=== PATIENT | male | born 1950 | race Caucasian/White ===

== ENCOUNTER 2018-07-11 09:49 | Emergency (ER) | payer OTHER ==
[~2018-07-11] VITALS: Ht 172.7 cm; Wt 83.0 kg
--- NOTE | 2018-07-11 10:13 | NUR ---
PT SELF PRESENTS TO ED. ROOMED TO ER BED 02. C/O ABDOMINAL PAIN W/ N/V/D THAT STARTED YESTERDAY. GOWNED AND PLACED ON MONITOR. VSS. AWAITING MD VALENTINO.
--- NOTE | 2018-07-11 10:14 | NUR ---
DR ASCENCIO AT BEDSIDE FOR EVAL.
[2018-07-11] MEDS ORDERED: ONDANSETRON HCL/PF 4 MG/2 ML VIAL ONE (10:18)
--- NOTE | 2018-07-11 10:20 | NUR ---
IV LINE STARTED BLOOD DRAWN AND SENT TO LAB.
[2018-07-11 10:27] LABS: BASOPHILS % (AUTO) 0.4 % (0.0-2.0); EOSINOPHILS % (AUTO) 0.1 % (0.0-6.0); HEMATOCRIT 40 % (39-51); HEMOGLOBIN 13.6 g/dL (13.5-17.5); LYMPHOCYTES # (AUTO) 0.3 /CMM (0.8-4.8); LYMPHOCYTES % (AUTO) 4.4 % (20.0-44.0); MEAN CORPUSCULAR HGB CONC 34 g/dl (31.0-36.0); MEAN CORPUSCULAR VOLUME 91 fL (80-96); MONOCYTES # (AUTO) 0.5 /CMM (0.1-1.30); MONOCYTES % (AUTO) 6.8 % (2.0-12.0); NEUTROPHILS % (AUTO) 88.3 % (43.0-81.0); PLATELET COUNT (AUTO) 154 /CMM (150-450); RED BLOOD CELL COUNT(AUTO) 4.41 MIL/uL (4.5-6.0); WHITE BLOOD COUNT (AUTO) 7.9 K/uL (4.3-11.0)
[2018-07-11] MEDS ORDERED: IV NS 0.9% 1,000 ML BAG IV ONE (10:30)
[2018-07-11] MEDS ORDERED: ONDANSETRON HCL/PF 4 MG/2 ML VIAL IVP ONE (10:30)
[2018-07-11 10:34] LABS: CALCIUM, SERUM 8.5 mg/dL (8.5-10.1); CREATININE 1.6 mg/dL (0.6-1.3); POTASSIUM 3.9 mmol/L (3.5-5.1)
[2018-07-11 10:50] LABS: ALBUMIN 3.8 g/dL (3.4-5.0); BILIRUBIN,DIRECT 0.2 mg/dL (0.0-0.2); BILIRUBIN,TOTAL 0.9 mg/dL (0.2-1.0); TOTAL PROTEIN, SERUM 6.9 g/dL (6.4-8.2)
[2018-07-11] MEDS ORDERED: ACETAMINOPHEN ES 500 MG TABLET ONE (11:19)
[2018-07-11] MEDS ORDERED: ACETAMINOPHEN ES 500 MG TABLET PO ONE (11:30)
[2018-07-11 11:37] VITALS: BP 100/59
--- NOTE | 2018-07-11 11:39 | NUR ---
For discharge ACI given verbalized instructions. Home ambulatory stable. NO nausea/vomiting or diarrhea in ER
== END 2018-07-11 11:38 | disposition home or self-care (01) ==
LOC: ER 09:51
DX: R19.7 Diarrhea, unspecified (principal); R11.10 Vomiting, unspecified; Z90.89 Acquired absence of other organs; Z60.2 Problems related to living alone
CPT/HCPCS: 36415; 80048-TC; 80076-TC; 83690-TC; 85025-TC; A4606; J2405; J7030; Z7610

== ENCOUNTER 2021-01-18 21:44 | Emergency (ER) | payer OTHER ==
[~2021-01-18] VITALS: Ht 172.7 cm; Wt 63.5 kg
--- NOTE | 2021-01-18 21:48 | NUR ---
LESA FROM HOME TO ER BED 12. AAOX4. NOT IN RESP DISTRESS. AMBULATORY. BROUGHT IN FOR ANXIETY. PER PT. HE HAS BEEN THINKING AND WRRYING ABOUT HIS PAST WHICH IS MAKING HIM ANXIOUS. PT ALSO VERBALIZED THAT HE IS WORRIED ABOUT HIS INSURANCE. AWAITING MD FOR EVAL.
[2021-01-18] MEDS ORDERED: LORAZEPAM INJ 2 MG/ML VIAL ONE (22:25)
[2021-01-18] MEDS ORDERED: LORAZEPAM INJ 2 MG/ML VIAL IM ONE (22:30)
--- NOTE | 2021-01-18 23:33 | NUR ---
pt is celared for discharged but is drowsy and unsteady on gait d/t receiving Ativa. OK to stay once he is less drowsy
[2021-01-18 23:35] VITALS: BP 120/63
--- NOTE | 2021-01-19 01:12 | NUR ---
Patient discharged to home in stable condition. Written and verbal after care instructions given. Patient verbalizes understanding of instruction. Advice pt not to drive or operate any machinery due to pt was given narcotic medicine. pt verbalize understanding.
[2021-01-20] MEDS ORDERED: TEMA30CA PO (23:35)
[2021-01-20] MEDS ORDERED: SIMV-49 PO (23:38)
[2021-01-20] MEDS ORDERED: PARO20TA7 PO (23:38)
[2021-01-20] MEDS ORDERED: LITH300T3 PO (23:38)
[2021-01-20] MEDS ORDERED: MIRT-90 PO (23:38)
== END 2021-01-19 01:18 | disposition home or self-care (01) ==
LOC: ER 21:44
DX: F41.9 Anxiety disorder, unspecified (principal); Z90.89 Acquired absence of other organs; Z60.2 Problems related to living alone
CPT/HCPCS: 96372; 99283; J2060

== ENCOUNTER 2021-01-20 13:40 | Inpatient (IN) | payer OTHER ==
[~2021-01-20] VITALS: Ht 170.2 cm; Wt 85.7 kg
[2021-01-20 13:55] LABS: BASOPHILS % (AUTO) 0.3 % (0.0-2.0); EOSINOPHILS % (AUTO) 0.2 % (0.0-6.0); HEMATOCRIT 43 % (39-51); HEMOGLOBIN 14.7 g/dL (13.5-17.5); LYMPHOCYTES # (AUTO) 0.6 K/uL (0.8-4.8); LYMPHOCYTES % (AUTO) 6.3 % (20.0-44.0); MEAN CORPUSCULAR HGB CONC 34 g/dl (31.0-36.0); MEAN CORPUSCULAR VOLUME 92 fL (80-96); MONOCYTES # (AUTO) 0.6 K/uL (0.1-1.30); MONOCYTES % (AUTO) 6.4 % (2.0-12.0); NEUTROPHILS # (AUTO) 8.6 K/uL (1.8-8.9); NEUTROPHILS % (AUTO) 86.8 % (43.0-81.0); PLATELET COUNT (AUTO) 236 K/uL (150-450); RED BLOOD CELL COUNT(AUTO) 4.72 MIL/uL (4.5-6.0); WHITE BLOOD COUNT (AUTO) 9.9 K/uL (4.3-11.0)
[2021-01-20 14:02] LABS: CALCIUM, SERUM 9.3 mg/dL (8.5-10.1); CARBON DIOXIDE 19 mmol/L (21-32); CHLORIDE 107 mmol/L (98-107); CREATININE 1.2 mg/dL (0.6-1.3); GLUCOSE 104 mg/dL (74-106); POTASSIUM 3.4 mmol/L (3.5-5.1); SODIUM SERUM 140 mmol/L (136-145); UREA NITROGEN, BLOOD 18 mg/dL (7-18)
[2021-01-20 14:08] LABS: ACETAMINOPHEN < 3 ug/ml (10-30); ALANINE AMINOTRANSFERASE 23 U/L (12-78); ALBUMIN 4.1 g/dL (3.4-5.0); ALCOHOL, BLOOD 0 mg/dL (0-0); ALKALINE PHOSPHATASE 63 U/L (46-116); ASPARTATE AMINOTRANSFERASE 26 U/L (15-37); BILIRUBIN,DIRECT 0.1 mg/dL (0.0-0.2); BILIRUBIN,TOTAL 0.5 mg/dL (0.2-1.0)
--- NOTE | 2021-01-20 14:10 | NUR ---
LESA FROM PT'S HOME TO ER BED 14. AAOX3. NOT IN RESP DISTRESS. BROUGHT IN FOR SUICIDAL IDEATION W/O SPECIFIC PLAN. PT HAS BEEN FEELING VERY ANXIOUS AND WORRIED OUT HIS PAST. PT WAS REPORTED TO HAVE TAKEN 2 TEMAZEPAM. MD WAS AT THE BEDSIDE FOR EVAL. PT PALCED IN GOWN, BELONGINGS PLACED IN LOCKER. 1:1 SITTER AT BEDSIDE. WILL CONTINUE TO MONITOR PT
--- NOTE | 2021-01-20 14:42 | NUR ---
SEEN BY BELKYS SANTAMARIA,WANTS PSYCH EVAL
--- NOTE | 2021-01-20 14:45 | NUR ---
SS Consult: SS Consult requested for SI. The pt. is a 70-year-old male who was BIBRA from home[[address] [facility] [address]; [phone]] after he called emergency services due to feeling "very suicidal", per patient. The pt. is A&O X 3 and makes poor eye contact. Pt. appear well-groomed, thin build, shaking, w/ depressed mood & affect. Pt. has thought blocking thought process, with fair insight as he stated he is aware of situation and fair judgement as he called paramedics when he did not feel safe. The pt. states that he has been experiencing intermittent SI for the past 10 years. Pt. stated he has a Hx. of Schizophrenia and is currently prescribed Chauvin, Trazadone, Mirtazapine, and Temazepam. Pt. unable to specify if he has been compliant with medication. Per pt. he attempted to commit suicide 10 years ago and could not specify method of suicide attempt. Pt. stats he is currently experiencing SI and did not specify a plan. Pt. actively experiencing visual hallucinations (closing eyes and stating he sees a bright light). Pt. currently experiencing auditory hallucinations and could not specify what the voices say. RIMA offered pt. voluntary psychiatric Tx. and pt. refused. RIMA unable to gather additions information as pt. is actively responding to hallucination and needs constant redirection. RIMA discussed case with charge nurse Rosie and Ductfixing Plumber, Willis Ashley [phone] will be called to assess this patient. RIMA will be available as needed. Per SS director, Rosana Li she spoke with Willis who will see this pt. NEAL.
[2021-01-20] MEDS ORDERED: LORAZEPAM INJ 2 MG/ML VIAL IV ONE (15:00)
[2021-01-20] MEDS ORDERED: IV NS 0.9% 1,000 ML BAG IV ONE (15:00)
[2021-01-20] MEDS ORDERED: LORAZEPAM INJ 2 MG/ML VIAL ONE (15:12)
--- NOTE | 2021-01-20 15:51 | NUR ---
pt unable to urinate at this time. pt is receiving 2L ns bolus. ok to collect urine once pt have the urge.
--- NOTE | 2021-01-20 16:21 | NUR ---
covid negative per lab
[2021-01-20 17:23] LABS: BILIRUBIN,URINE Negative (NEGATIVE); COLOR,URINE YELLOW (YELLOW); LEUKOCYTE ESTERASE ,URINE Trace (NEGATIVE); NITRITE, URINE Negative (NEGATIVE); PH,URINE 5.5 (5.0-8.0); PROTEIN,URINE Negative (NEGATIVE); UGLUCOSE Negative (NEGATIVE); UROBILINOGEN,URINE 0.2 EU/dL (0.2)
--- NOTE | 2021-01-20 17:40 | NUR ---
Paged pinky for PET eval
[2021-01-20 17:43] LABS: BACTERIA,URINE Few /HPF (None Seen); RBC,URINE NONE SEEN /HPF (0-2); SQUAMOUS EPITHELIAL CELL,UR Few /HPF (None Seen)
--- NOTE | 2021-01-20 20:35 | NUR ---
PT PLACED ON 5150 HOLD FOR DANGER TO SELF
--- NOTE | 2021-01-20 21:55 | NUR ---
CARY 211-1
--- NOTE | 2021-01-20 22:50 | NUR ---
REPORT GIVEN TO SEAN BOONE FOR PIETRO
--- NOTE | 2021-01-20 22:56 | NUR ---
PT TO GPS VIA WHEELCHAIR.
[2021-01-20] MEDS ORDERED: MAG HYDROX/AL HYDROX/SIMETH 30 ML UDC PO PRN (23:30)
[2021-01-20] MEDS ORDERED: BLOOD SUGAR DIAGNOSTIC 1 EACH STRIP IN ONE (23:30)
[2021-01-20] MEDS ORDERED: MAGNESIUM HYDROXIDE 30 ML UDC PO PRN (23:30)
[2021-01-20] MEDS ORDERED: ACETAMINOPHEN 325 MG TABLET PO PRN (23:30)
[2021-01-20] MEDS ORDERED: TEMA30CA PO (23:35)
[2021-01-20] MEDS ORDERED: SIMV-49 PO (23:38)
[2021-01-20] MEDS ORDERED: MIRT-90 PO (23:38)
[2021-01-20] MEDS ORDERED: LITH300T3 PO (23:38)
[2021-01-20] MEDS ORDERED: PARO20TA7 PO (23:38)
[2021-01-21 01:02] VITALS: BP 146/84
--- NOTE | 2021-01-21 01:38 | NUR ---
GPS GEOLOGY FACULTY MEMBER NOTE: RECEIVED PATIENT FROM ER ORIGINALLY FROM HOME. PATIENT ARRIVED ON THIS UNIT AT 2308 VIA W/C WITH 1 ER ESCORT. PATIENT ADMITTED ON A 5150 HOLD FOR DTS, HOLD WAS PLACED ON 01/20/21 @ 2034. PER HOLD, RESCUE TEAM BROUGHT PATIENT FROM HOME AFTER PATIENT CALLED TO REPORT HE TOOK 2 TABLETS OF TEMAZEPAM IN AN ATTEMPT TO COMMIT SUICIDE D/T ANXIETY AND RACING THOUGHTS. UPON FACE TO FACE EVALUATION, PATIENT IS A/O X2-3, APPEARS DEPRESSED, ANXIOUS, DISHEVELED, LOOSE ASSOCIATIONS, DISORGANIZED, HYPERVERBAL, TALKING TO SELF, PARANOID, COOPERATIVE. PER PATIENT "[place] HAS A VERY ADVANCED TECHNOLOGY THAT CAN SEE EVERYTHING". PATIENT IS CURRENTLY LAYING IN BED AWAKE, NO S/S OF DISTRESS, NO C/O OF PAIN. RESPIRATION EVEN AND UNLABORED WITH EQUAL RISE AND FALL OF THE CHEST, ON ROOM AIR. DENIES SI AT THIS TIME. ACCU CHEK DONE, BS 110MG/DL. PATIENT UNABLE TO SIGN ADMISSION PAPERWORK D/T MENTAL CONDITION. PATIENT ADVISED OF HIS HOLD AND PATIENT RIGHT HANDBOOK GIVEN. PATIENT IS UNDER THE PSYCHIATRIC CARE OF DR DRAKE AND MEDICAL [facility]ARE OF [facility]. PATIENT BELONGINGS WERE INVENTORIED AND CHECKED FOR CONTRABAND. CONTRABAND REMOVED AND STORED IN PATIENT HALLWAY LOCKER. PATIENT ADVANCE DIRECTIVES PREFERENCES, IMMUNIZATIONS QUESTIONER NECESSARY PAPERWORK COMPLETED. PATIENT SKIN ASSESSMENT COMPLETED, SKIN INTACT. PATIENT ORIENTED TO ROOM, FLOOR, AND STAFF WITH ALL PATIENT QUESTIONS ANSWERED. PATIENT EDUCATED ON THE USE OF CALL SALAZAR. PATIENT BED SIDE RAILS UP X2 FOR SAFETY. PATIENT BED IS LOCKED AND IN LOWEST POSITION. ALL PATIENT NEEDS HAVE BEEN MET AT THIS TIME. WILL CONTINUE TO MONITOR Q15 FOR SAFETY, MOOD AND BEHAVIOR.
--- NOTE | 2021-01-21 06:41 | NUR ---
GPS RN CLOSING NOTES: PATIENT IS SLEEPING COMFORTABLY IN BED. PATIENT SLEPT 6HRS THIS SHIFT. NO S/S OF DISTRESS. RESPIRATION EVEN AND UNLABORED WITH EQUAL RISE AND FALL OF THE CHEST ON ROOM AIR. ALL PATIENT CARE NEEDS HAVE BEEN MET ANTICIPATED. WILL CONTINUE TO MONITOR FOR SAFETY, MOOD AND BEHAVIOR AND ENDORSE TO AM SHIFT.
[2021-01-21 08:00] VITALS: BP 131/77
--- NOTE | 2021-01-21 10:09 | NUR ---
UR Note: Josefa ([phone]), community case manager from [facility], provided Auth# [id number]. senior nurse manager asked for daily clinicals to be faxed to the fax number [phone].
--- NOTE | 2021-01-21 13:55 | NUR ---
Point of Contact: Pt does not have anyone for the SW to contact.
--- NOTE | 2021-01-21 13:55 | NUR ---
Initial Discharge Plan: Pt currently lives alone in an apartment located at [address] [place] [address], [place] [address]; ([phone]). Per pt, he would like to return to his home after discharge. SW will work with the pt and the MD regarding appropriate discharge planning. SW will form a safe and proper discharge.
--- NOTE | 2021-01-21 14:03 | NUR ---
UR Note: RIMA faxed a clinical to [employer] with attn to Josefa to the fax number: [phone].
--- NOTE | 2021-01-21 14:15 | NUR ---
Substance Abuse Intervention: RIMA conducted a substance abuse intervention with the pt due to his prescription overdose attempt.
[2021-01-21] MEDS: LITHIUM CARBONATE 150 MG CAPSULE PO SCH ×2 (14:24→18:12)
[2021-01-21 16:00] VITALS: BP 148/82
[2021-01-21 20:33] VITALS: BP 135/68
[2021-01-21] MEDS ORDERED: OLANZAPINE 10 MG TABLET PO SCH (22:00)
[2021-01-22 07:23] LABS: BASOPHILS % (AUTO) 0.3 % (0.0-2.0); EOSINOPHILS % (AUTO) 2.4 % (0.0-6.0); HEMATOCRIT 43 % (39-51); HEMOGLOBIN 14.5 g/dL (13.5-17.5); LYMPHOCYTES # (AUTO) 1.1 K/uL (0.8-4.8); LYMPHOCYTES % (AUTO) 14.8 % (20.0-44.0); MEAN CORPUSCULAR HGB CONC 34 g/dl (31.0-36.0); MEAN CORPUSCULAR VOLUME 94 fL (80-96); MONOCYTES # (AUTO) 0.5 K/uL (0.1-1.30); MONOCYTES % (AUTO) 7.2 % (2.0-12.0); NEUTROPHILS # (AUTO) 5.6 K/uL (1.8-8.9); NEUTROPHILS % (AUTO) 75.3 % (43.0-81.0); PLATELET COUNT (AUTO) 198 K/uL (150-450); RED BLOOD CELL COUNT(AUTO) 4.61 MIL/uL (4.5-6.0); WHITE BLOOD COUNT (AUTO) 7.5 K/uL (4.3-11.0)
[2021-01-22 07:38] LABS: CALCIUM, SERUM 9.6 mg/dL (8.5-10.1); POTASSIUM 3.8 mmol/L (3.5-5.1)
[2021-01-22 08:00] VITALS: BP 160/86
[2021-01-22] MEDS: LITHIUM CARBONATE 150 MG CAPSULE PO SCH ×2 (08:42→16:57)
[2021-01-22 16:00] VITALS: BP 130/67
[2021-01-22 20:00] VITALS: BP 114/61
[2021-01-22 20:03] VITALS: BP 114/61
[2021-01-22] MEDS ORDERED: OLANZAPINE 2.5 MG TABLET PO SCH (22:00)
[2021-01-22] MEDS: TEMAZEPAM 7.5 MG CAPSULE PO PRN (23:57)
--- NOTE | 2021-01-22 23:58 | NUR ---
RN NOTES : INSOMNIA PT. C/O UNABLE TO SLEEP , RESTORIL 7.5 MG PO PRN GIVEN PER PT. REQUEST WILL CONTINUE TO MONITOR.
[2021-01-23 08:00] VITALS: BP 159/84
[2021-01-23] MEDS: LITHIUM CARBONATE 150 MG CAPSULE PO SCH ×2 (08:04→16:46)
[2021-01-23] MEDS: LORAZEPAM 0.5 MG TABLET PO PRN ×2 (09:24→16:46)
[2021-01-23 16:00] VITALS: BP 118/69
--- NOTE | 2021-01-23 16:22 | NUR ---
GPS/RN VIKTORIA HAILE ELECTRONIC NEWS GATHERING EDITOR CALLED VIA [a]list games EXCHANGE TO SEE THE PT.NEW ORDER TO CONTINUE HOME MEDS SIMVASTATIN 40MG AND TO CALL STIVEN RECEIVED. TO SEE THE PT. CALLED [employer]CHANGE. DR SALEEM PAGED AND WE WAITING FOR CALL BACK.
[2021-01-23 20:22] VITALS: BP 130/78
[2021-01-23] MEDS: OLANZAPINE 2.5 MG TABLET PO SCH (21:24)
[2021-01-24 08:00] VITALS: BP 160/91
[2021-01-24] MEDS: SIMVASTATIN 20 MG TABLET PO SCH (08:30)
[2021-01-24] MEDS: LITHIUM CARBONATE 150 MG CAPSULE PO SCH ×2 (08:30→16:41)
[2021-01-24] MEDS ORDERED: SIMVASTATIN 40 MG TABLET PO SCH (09:00)
--- NOTE | 2021-01-24 09:00 | NUR ---
RN NOTE- PT CONFUSED W LOOSE ASSOCIATIONS, DENIES SI HI AH VH,MED COMPLIANT, PO INTAKE FAIR WITHDRAWN ISOLATIVE
--- NOTE | 2021-01-24 09:48 | NUR ---
UR Note: RIMA faxed a clinical to [employer] with attn to Josefa to the fax number: [phone].
[2021-01-24 16:00] VITALS: BP 103/66
[2021-01-24 20:00] VITALS: BP 128/66
[2021-01-24] MEDS: LORAZEPAM 0.5 MG TABLET PO PRN (20:16)
[2021-01-24] MEDS: OLANZAPINE 2.5 MG TABLET PO SCH (21:20)
[2021-01-24] MEDS: TEMAZEPAM 7.5 MG CAPSULE PO PRN (22:00)
--- NOTE | 2021-01-24 22:06 | NUR ---
GPS RN NOTES: PATIENT REQUESTED FOR SLEEP MEDICATION. RESTORIL 7.5MG 1TAB GIVEN PO PRN ORDERED AT 2200. WILL CONTINUE TO MONITOR.
--- NOTE | 2021-01-25 06:33 | NUR ---
GPS RN CLOSING NOTES: PATIENT IS CURRENTLY SLEEPING. PATIENT SLEPT 7HRS THIS SHIFT. PATIENT WAS COMPLIANT WITH MEDICATION THIS SHIFT. NO S/S OF DISTRESS. RESPIRATION EVEN AND UNLABORED WITH EQUAL RISE AND FALL OF THE CHEST ON ROOM AIR. ALL PATIENT CARE NEEDS HAVE BEEN MET ANTICIPATED. BED IN LOWEST POSITION AND LOCKED, WITH SIDE RAILS UP X2 FOR SAFETY. WILL CONTINUE TO MONITOR FOR SAFETY, MOOD AND BEHAVIOR AND ENDORSE TO AM SHIFT.
[2021-01-25 08:00] VITALS: BP 133/76
[2021-01-25] MEDS: LITHIUM CARBONATE 150 MG CAPSULE PO SCH ×2 (08:00→16:21)
[2021-01-25] MEDS: SIMVASTATIN 20 MG TABLET PO SCH (08:00)
--- NOTE | 2021-01-25 09:00 | NUR ---
RN NOTE- PT DENIES SI HI AH VH,MED COMPLIANT, PO INTAKE FAIR WITHDRAWN ISOLATIVE
[2021-01-25 11:42] LABS: BASOPHILS % (AUTO) 0.3 % (0.0-2.0); EOSINOPHILS % (AUTO) 1.9 % (0.0-6.0); HEMATOCRIT 45 % (39-51); HEMOGLOBIN 15.3 g/dL (13.5-17.5); LYMPHOCYTES # (AUTO) 0.9 K/uL (0.8-4.8); LYMPHOCYTES % (AUTO) 11.3 % (20.0-44.0); MEAN CORPUSCULAR HGB CONC 34 g/dl (31.0-36.0); MEAN CORPUSCULAR VOLUME 93 fL (80-96); MONOCYTES # (AUTO) 0.5 K/uL (0.1-1.30); MONOCYTES % (AUTO) 7.1 % (2.0-12.0); NEUTROPHILS # (AUTO) 6.1 K/uL (1.8-8.9); NEUTROPHILS % (AUTO) 79.4 % (43.0-81.0); PLATELET COUNT (AUTO) 231 K/uL (150-450); RED BLOOD CELL COUNT(AUTO) 4.86 MIL/uL (4.5-6.0); WHITE BLOOD COUNT (AUTO) 7.7 K/uL (4.3-11.0)
[2021-01-25 12:28] LABS: ALBUMIN 4.3 g/dL (3.4-5.0); BILIRUBIN,TOTAL 0.6 mg/dL (0.2-1.0); CALCIUM, SERUM 10.2 mg/dL (8.5-10.1); CREATININE 1.2 mg/dL (0.6-1.3); POTASSIUM 4.2 mmol/L (3.5-5.1); TOTAL PROTEIN, SERUM 7.4 g/dL (6.4-8.2)
[2021-01-25 15:59] VITALS: BP 103/59
--- NOTE | 2021-01-25 16:12 | NUR ---
UR Note: RIMA faxed a clinical to [employer] with attn to Josefa to the fax number: [phone].
--- NOTE | 2021-01-25 19:25 | NUR ---
nurses opening notes: Pt is in his room awake in bed when received from the morning shift, alert and awake with no distress as noted.
[2021-01-25 20:00] VITALS: BP 128/72
[2021-01-25] MEDS: OLANZAPINE 2.5 MG TABLET PO SCH (21:54)
[2021-01-25] MEDS: TEMAZEPAM 7.5 MG CAPSULE PO PRN (21:54)
[2021-01-25] MEDS: LORAZEPAM 0.5 MG TABLET PO PRN (21:58)
--- NOTE | 2021-01-26 06:01 | NUR ---
GPS CLOSING NOTES: PATIENT IS SLEEPING COMFORTABLY IN BED. NO S/S OF DISTRESS. RESPIRATION EVEN AND UNLABORED WITH EQUAL RISE AND FALL OF THE CHEST ON ROOM AIR. ALL PATIENT CARE NEEDS HAVE BEEN MET ANTICIPATED. WILL CONTINUE TO MONITOR FOR SAFETY, MOOD AND BEHAVIOR AND ENDORSE TO AM SHIFT.
[2021-01-26 08:00] VITALS: BP 115/73
[2021-01-26] MEDS: LITHIUM CARBONATE 150 MG CAPSULE PO SCH ×2 (08:43→16:26)
[2021-01-26] MEDS: SIMVASTATIN 20 MG TABLET PO SCH (08:43)
--- NOTE | 2021-01-26 09:00 | NUR ---
RN NOTE- CONTINUES W FLAT AFFECT SLOW VERBAL INTERACTION FOCUS ON DC CONFUSED PT DENIES SI HI AH VH,MED COMPLIANT, PO INTAKE FAIR WITHDRAWN ISOLATIVE
--- NOTE | 2021-01-26 14:31 | NUR ---
Probable Cause Hearing: Pts [id number] hold was upheld for danger to self.
[2021-01-26 16:00] VITALS: BP 130/77
--- NOTE | 2021-01-26 19:30 | NUR ---
GPS RN NOTES RECEIVED LYING COMFORTABLY ON BED IN HIS ROOM,ALERT,ORIENTED X2-3,ABLE TO VERBALIZED NEEDS,FOLLOW COMMANDS WITHOUT HESITATION.AMBULATE WITH STEADY GAIT,MED COMPLIANT PER REPORT.WILL CONTINUE TO MONITOR BEHAVIOR AND MANAGE ACCORDINGLY.
[2021-01-26 20:00] VITALS: BP 153/88
[2021-01-26] MEDS: OLANZAPINE 2.5 MG TABLET PO SCH (21:29)
[2021-01-26] MEDS: TEMAZEPAM 7.5 MG CAPSULE PO PRN (21:32)
--- NOTE | 2021-01-26 21:32 | NUR ---
GPS RN NOTES C/O INSOMNIA,RESTORIL 7.5MG PO GIVEN ORDERED AND PER PATIENT REQUEST
--- NOTE | 2021-01-27 00:07 | NUR ---
Point of contact: RIMA spoke with Josefa at [facility] to discuss pts appt with bulk mail technician. Josefa reports that pt must make appt with bulk mail technician Dr. Greg Castaneda at [address] [place] [address].
[2021-01-27 08:00] VITALS: BP 143/81
[2021-01-27] MEDS: SIMVASTATIN 20 MG TABLET PO SCH (08:26)
[2021-01-27] MEDS: LITHIUM CARBONATE 150 MG CAPSULE PO SCH (08:26)
--- NOTE | 2021-01-27 13:10 | NUR ---
Point of contact: RIMA spoke with Josefa at [facility] ([phone]) to discuss appt with psychiatrist. Josefa reports that [facility] will follow up with pt regarding psychiatrist appt.
--- NOTE | 2021-01-27 13:14 | NUR ---
Individual Intervention: Upon discharge, SW informed pt of substance use referrals to [facility] at [address] ([phone]), [facility] at [address] [place] [address] ([phone]) and [facility] at [address] [place], [place] ([phone]).
--- NOTE | 2021-01-27 13:39 | NUR ---
Discharge: Pt will be discharged back home located at [address] [place] [address]; ([phone]). Pt will be transported via taxi at 1pm. Pt does not have anyone to contact about this discharge. Pt was given referrals for substance abuse such as [facility] on [address] [place], [place] [phone] , [facility] on [address] [place] [phone] and [facility] on [address] [place], [place] [phone] . Upon discharge, the pt denied suicidal and homicidal ideation as well as visual and auditory hallucinations. Pts mood and affect were calm and euthymic upon discharge. The pt was referred to be under the care of experimental rocketsled mechanic Dr. Greg Castaneda at [address] [place] [address] and pt must make the appt. Per Josefa at [facility] ([phone]) [facility] will follow up with pt regarding psychiatrist appt.
--- NOTE | 2021-01-27 13:49 | NUR ---
UR Note: RIMA faxed discharge summary to [facility] with attn to Josefa to the fax number: [phone].
--- NOTE | 2021-01-27 13:54 | NUR ---
RN-DISCHARGE NOTES RECEIVED DISCHARGE ORDER FROM ( PSYCHIATRIST) NOEMÍ GROSS ([facility]) MADE AWARE WITH ORDERS. PATIENT DISCHARGE TO HOME TODAY.PATIENT DID NOT VERBALIZE SI/HI,DENIES VISUAL/AUDITORY HALLUCINATIONS AT THE TIME OF DISCHARGE.ALL DISCHARGE MEDICATIONS WAS REVIEWED WITH THE PATIENT WITH UNDERSTANDING. RX WAS FAXED TO [facility] AT [phone] AND RECEIVED AND VERIFIED WITH IVAN ( PHARMACIES). NOTE SPECIALIST INSTRUCTED TO FOLLOW UP WITH PCP IN A WEEK OR NEEDED AND CALL 911 OR GO TO THE NEAREST EMERGENCY ROOM INCASE OF EMERGENCY. PATIENT LEFT THE UNIT IN STABLE CONDITION A/O X3 AMBULATORY WITH STEADY GAIT. ALL BELONGINGS WAS RETURN BACK TO THE PATIENT INCLUDING BLACK WALLET, CAR SESAY AND SOME KEYS, AND OTHER BELONGINGS. PATIENT LEFT THE HOSPITAL VIA TAXI. MASK WAS GIVEN TO THE PATIENT. NO FAMILY TO NOTIFY ON THE DISCHARGE.
== END 2021-01-27 11:45 | disposition home or self-care (01) | DRG 885 ==
LOC: ER 13:45 → GPS 22:29
PROVIDERS: ADMIT Psychiatry & Neurology Psychosomatic Medicine
DX: F25.0 Schizoaffective disorder, bipolar type (principal); F29 Unspecified psychosis not due to a substance or known physiological condition; F41.9 Anxiety disorder, unspecified; Z20.822 Contact with and (suspected) exposure to COVID-19; Z86.73 Personal history of transient ischemic attack (TIA), and cerebral infarction without residual deficits; Z91.14 Patient's other noncompliance with medication regimen; F32.9 Major depressive disorder, single episode, unspecified; Z90.49 Acquired absence of other specified parts of digestive tract; E78.5 Hyperlipidemia, unspecified; I10 Essential (primary) hypertension; Z91.5 Personal history of self-harm; Z87.891 Personal history of nicotine dependence
CPT/HCPCS: 36415; 80048-TC; 80053-TC; 80061-TC; 80076-TC; 81001; 82962-TC; 84443-TC; 85025-TC; 87081-TC; 97116-TC; 97530-TC; C9803; G0480; J2060; J7030

== ENCOUNTER 2021-01-29 08:22 | Emergency (ER) | payer OTHER ==
[~2021-01-29] VITALS: Ht 172.7 cm; Wt 72.1 kg
[~2021-01-29 08:22] MED LIST: SIMV-49 PO
--- NOTE | 2021-01-29 08:40 | NUR ---
Patient came in c/o "Depressed-I have racing/thoughts/cant cope anymore was in psych facility 1wk ago Denies suicidal thoughts". AOX4, NO SOB NOTED, NO C/O OF PAIN, NO S/O ANY ACUTE DISTRESS NOTED. MAKE COMFORTABLE IN BED. WILL CONTINUE TO MONITOR
--- NOTE | 2021-01-29 08:56 | NUR ---
COVID SWAB DONE AND SENT TO THE LAB
[2021-01-29 09:01] LABS: BASOPHILS % (AUTO) 0.4 % (0.0-2.0); EOSINOPHILS % (AUTO) 1.4 % (0.0-6.0); HEMATOCRIT 42 % (39-51); HEMOGLOBIN 14.1 g/dL (13.5-17.5); LYMPHOCYTES # (AUTO) 0.8 K/uL (0.8-4.8); LYMPHOCYTES % (AUTO) 10.5 % (20.0-44.0); MEAN CORPUSCULAR HGB CONC 34 g/dl (31.0-36.0); MEAN CORPUSCULAR VOLUME 93 fL (80-96); MONOCYTES # (AUTO) 0.5 K/uL (0.1-1.30); MONOCYTES % (AUTO) 6.1 % (2.0-12.0); NEUTROPHILS # (AUTO) 6.1 K/uL (1.8-8.9); NEUTROPHILS % (AUTO) 81.6 % (43.0-81.0); PLATELET COUNT (AUTO) 213 K/uL (150-450); RED BLOOD CELL COUNT(AUTO) 4.53 MIL/uL (4.5-6.0); WHITE BLOOD COUNT (AUTO) 7.5 K/uL (4.3-11.0)
--- NOTE | 2021-01-29 09:01 | NUR ---
URINE COLLECTED AND SEND TO LAB
[2021-01-29] MEDS ORDERED: LITH300C2 PO (09:11)
[2021-01-29] MEDS ORDERED: TRAZ-257 PO ×2 (09:11→16:33)
[2021-01-29] MEDS ORDERED: MIRT-121 PO (09:11)
[2021-01-29] MEDS ORDERED: PARO20TA7 PO ×2 (09:11→16:33)
[2021-01-29 09:21] LABS: CALCIUM, SERUM 9.2 mg/dL (8.5-10.1); CARBON DIOXIDE 23 mmol/L (21-32); CHLORIDE 110 mmol/L (98-107); CREATININE 1.2 mg/dL (0.6-1.3); GLUCOSE 146 mg/dL (74-106); POTASSIUM 3.7 mmol/L (3.5-5.1); SODIUM SERUM 141 mmol/L (136-145); UREA NITROGEN, BLOOD 20 mg/dL (7-18)
[2021-01-29 09:28] LABS: ALANINE AMINOTRANSFERASE 31 U/L (12-78); ALBUMIN 3.8 g/dL (3.4-5.0); ALKALINE PHOSPHATASE 58 U/L (46-116); ASPARTATE AMINOTRANSFERASE 17 U/L (15-37); BILIRUBIN,DIRECT 0.1 mg/dL (0.0-0.2); BILIRUBIN,TOTAL 0.4 mg/dL (0.2-1.0); TOTAL PROTEIN, SERUM 6.7 g/dL (6.4-8.2)
[2021-01-29 09:29] LABS: ACETAMINOPHEN < 10 ug/ml (10-30); ALCOHOL, BLOOD < 3 mg/dL (0-0)
[2021-01-29 09:56] LABS: BILIRUBIN,URINE NEGATIVE (NEGATIVE); COLOR,URINE YELLOW (YELLOW); LEUKOCYTE ESTERASE ,URINE NEGATIVE (NEGATIVE); NITRITE, URINE NEGATIVE (NEGATIVE); PROTEIN,URINE NEGATIVE (NEGATIVE); UGLUCOSE NEGATIVE (NEGATIVE); UROBILINOGEN,URINE 0.2 EU/dL (0.2)
[2021-01-29 10:08] LABS: BACTERIA,URINE None seen /HPF (None Seen); RBC,URINE NONE SEEN /HPF (0-2); SQUAMOUS EPITHELIAL CELL,UR Few /HPF (None Seen); WBC,URINE 0-2 /HPF (0-3)
--- NOTE | 2021-01-29 11:14 | NUR ---
CALLED CRISIS CLINICAN AND LEFT A VOICEMAIL
--- NOTE | 2021-01-29 11:54 | NUR ---
SHANTEL WILL COME IN 45 MIN TO AN HOUR
--- NOTE | 2021-01-29 11:55 | NUR ---
RADHA CANDY WAFFLE ASSEMBLER THEO PHONE [phone] FAX [phone]
--- NOTE | 2021-01-29 11:55 | NUR ---
CRISIS CLINICAN COMING IN 45-60 MIN
--- NOTE | 2021-01-29 12:00 | NUR ---
PER THEO SENIOR SPEECH PATHOLOGIST FROM [facility] THE PATIENT IS APPROVED TO STAY IN [facility].
--- NOTE | 2021-01-29 12:03 | NUR ---
FAXED CLINICAL AND FACESHEET TO [facility]HA DUPREE
[2021-01-29] MEDS ORDERED: LITH300T3 PO (16:33)
[2021-01-29] MEDS ORDERED: TEMA15CA PO ×2 (16:33→16:39)
[2021-01-29] MEDS ORDERED: SIMV-49 PO (16:33)
[2021-01-29 16:49] VITALS: BP 118/79
== END 2021-01-29 16:50 | disposition home or self-care (01) ==
LOC: ER 08:25
DX: R45.851 Suicidal ideations (principal); F32.9 Major depressive disorder, single episode, unspecified; Z20.822 Contact with and (suspected) exposure to COVID-19; I10 Essential (primary) hypertension; F41.9 Anxiety disorder, unspecified; Z79.899 Other long term (current) drug therapy; Z76.0 Encounter for issue of repeat prescription
CPT/HCPCS: 36415; 80048; 80076; 80143; 80307; 80320; 81001; 85025; 87426; 99285; C9803; G0480

== ENCOUNTER 2021-03-03 08:47 | Emergency (ER) | payer OTHER ==
[~2021-03-03] VITALS: Ht 172.7 cm; Wt 68.0 kg
[~2021-03-03 08:47] MED LIST changes: +LITH300C2 PO; +LITH300T3 PO; +MIRT-121 PO; +PARO20TA7 PO; +TEMA15CA PO; +TRAZ-257 PO
--- NOTE | 2021-03-03 09:09 | NUR ---
ASSUME PT CARE, PT RESTING HERE BECAUSE HE IS UNABLE TO SLEEP SINCE LAST NIGHT AND IS WISHING TO SPEAK TO A PET TEAM. PT DENIES SI/HI. VERBALLY RESPONSIVE. STABLE VITALS. AWAITING MD VALENTINO.
--- NOTE | 2021-03-03 09:10 | NUR ---
DR MCGOVERN AT BEDSIDE FOR EVAL.
[2021-03-03] MEDS ORDERED: OLANZAPINE 5 MG TABLET ONE (09:25)
[2021-03-03] MEDS ORDERED: OLANZAPINE 5 MG TABLET PO ONE (09:30)
--- NOTE | 2021-03-03 09:32 | NUR ---
PRODUCTION BROACHING MACHINE OPERATOR AT BEDSIDE FOR BLOOD DRAW.
[2021-03-03 09:41] LABS: BASOPHILS % (AUTO) 0.5 % (0.0-2.0); HEMATOCRIT 40 % (39-51); HEMOGLOBIN 13.7 g/dL (13.5-17.5); MEAN CORPUSCULAR HGB CONC 34 g/dl (31.0-36.0); MEAN CORPUSCULAR VOLUME 92 fL (80-96); MONOCYTES # (AUTO) 0.5 K/uL (0.1-1.30); MONOCYTES % (AUTO) 5.7 % (2.0-12.0); NEUTROPHILS # (AUTO) 7.4 K/uL (1.8-8.9); NEUTROPHILS % (AUTO) 81.8 % (43.0-81.0); PLATELET COUNT (AUTO) 289 K/uL (150-450); RED BLOOD CELL COUNT(AUTO) 4.38 MIL/uL (4.5-6.0)
[2021-03-03 09:55] LABS: CALCIUM, SERUM 9.5 mg/dL (8.5-10.1); CARBON DIOXIDE 24 mmol/L (21-32); CHLORIDE 108 mmol/L (98-107); CREATININE 1.5 mg/dL (0.6-1.3); GLUCOSE 99 mg/dL (74-106); POTASSIUM 4.2 mmol/L (3.5-5.1); SODIUM SERUM 142 mmol/L (136-145); UREA NITROGEN, BLOOD 13 mg/dL (7-18)
--- NOTE | 2021-03-03 09:55 | NUR ---
PT PROVIDED W. MEAL TRAY.
--- NOTE | 2021-03-03 09:56 | NUR ---
UNABLE TO PROVIDE URINE SAMPLE AT THIS TIME. URINAL PROVIDED.
[2021-03-03 10:01] LABS: ALANINE AMINOTRANSFERASE 23 U/L (12-78); ALCOHOL, BLOOD < 3 mg/dL (0-0); ALKALINE PHOSPHATASE 86 U/L (46-116); ASPARTATE AMINOTRANSFERASE 15 U/L (15-37); BILIRUBIN,DIRECT 0.1 mg/dL (0.0-0.2); BILIRUBIN,TOTAL 0.5 mg/dL (0.2-1.0); TOTAL PROTEIN, SERUM 6.9 g/dL (6.4-8.2)
[2021-03-03 10:11] LABS: BILIRUBIN,URINE Negative (NEGATIVE); COLOR,URINE YELLOW (YELLOW); LEUKOCYTE ESTERASE ,URINE Negative (NEGATIVE); NITRITE, URINE Negative (NEGATIVE); PROTEIN,URINE Trace mg/dl (NEGATIVE); UGLUCOSE Negative (NEGATIVE); UROBILINOGEN,URINE 0.2 EU/dL (0.2)
[2021-03-03 10:12] LABS: BACTERIA,URINE None seen /HPF (None Seen); HYALINE CASTS, URINE Few /LPF (None Seen); RBC,URINE 0-2 /HPF (0-2); SQUAMOUS EPITHELIAL CELL,UR None Seen /HPF (None Seen); WBC,URINE 0-2 /HPF (0-3)
[2021-03-03 10:15] LABS: ACETAMINOPHEN 0 ug/ml (10-30)
--- NOTE | 2021-03-03 11:46 | NUR ---
ART CALLED HE IS ON HIS WAY.
--- NOTE | 2021-03-03 13:18 | NUR ---
ART NUCLEAR POWERPLANT SUPERVISOR AT BEDSIDE FOR PSYCH EVAL.
--- NOTE | 2021-03-03 13:41 | NUR ---
Patient discharged to home in stable condition. Written and verbal after care instructions given. Patient verbalizes understanding of instruction.
[2021-03-03 13:42] VITALS: BP 121/76
== END 2021-03-03 13:42 | disposition home or self-care (01) ==
LOC: ER 08:54
DX: F23 Brief psychotic disorder (principal); I10 Essential (primary) hypertension; Z86.59 Personal history of other mental and behavioral disorders; Z79.899 Other long term (current) drug therapy
CPT/HCPCS: 36415; 80048-TC; 80076-TC; 81001; 85025-TC; C9803; G0480

== ENCOUNTER 2021-03-07 18:02 | Emergency (ER) | payer MEDICARE, OTHER ==
[~2021-03-07] VITALS: Ht 172.7 cm; Wt 65.8 kg
[~2021-03-07 18:02] MED LIST changes: -LITH300T3 PO
--- NOTE | 2021-03-07 18:40 | NUR ---
ASSUME PT CARE, PT COMING FROM HOME, STATES BEEN FEELING DEPRESSED FOR THE PAST COUPLE OF DAYS AND IS HAVING SUICIDAL IDEATION. PT HAS NO PLAN DIRECTOR OF LOSS PREVENTION. DENIES HI. VERBALLY RESPONSIVE AND COOPERATIVE TO STAFF. STABLE VITALS. SITTER AT BEDSIDE. AWAITING MD VALENTINO.
--- NOTE | 2021-03-07 18:45 | NUR ---
DR BECK AT BEDSIDE FOR EVAL.
[2021-03-07 18:47] LABS: BILIRUBIN,URINE Negative (NEGATIVE); COLOR,URINE YELLOW (YELLOW); LEUKOCYTE ESTERASE ,URINE Trace (NEGATIVE); NITRITE, URINE Negative (NEGATIVE); PROTEIN,URINE Negative (NEGATIVE); UGLUCOSE Negative (NEGATIVE); UROBILINOGEN,URINE 0.2 EU/dL (0.2)
--- NOTE | 2021-03-07 18:57 | NUR ---
CANE PUSHER AT BEDSIDE FOR BLOOD DRAW.
[2021-03-07 19:01] LABS: BASOPHILS % (AUTO) 0.3 % (0.0-2.0); EOSINOPHILS % (AUTO) 1.9 % (0.0-6.0); HEMATOCRIT 41 % (39-51); HEMOGLOBIN 13.6 g/dL (13.5-17.5); LYMPHOCYTES # (AUTO) 1.4 K/uL (0.8-4.8); LYMPHOCYTES % (AUTO) 19.2 % (20.0-44.0); MEAN CORPUSCULAR HGB CONC 34 g/dl (31.0-36.0); MEAN CORPUSCULAR VOLUME 92 fL (80-96); MONOCYTES # (AUTO) 0.6 K/uL (0.1-1.30); NEUTROPHILS # (AUTO) 5.2 K/uL (1.8-8.9); NEUTROPHILS % (AUTO) 70.6 % (43.0-81.0); PLATELET COUNT (AUTO) 273 K/uL (150-450); WHITE BLOOD COUNT (AUTO) 7.4 K/uL (4.3-11.0)
[2021-03-07 19:09] LABS: BACTERIA,URINE Rare /HPF (None Seen); RBC,URINE 0-2 /HPF (0-2); SQUAMOUS EPITHELIAL CELL,UR 0-2 /HPF (None Seen)
[2021-03-07 19:25] LABS: CALCIUM, SERUM 8.7 mg/dL (8.5-10.1); CARBON DIOXIDE 24 mmol/L (21-32); CHLORIDE 106 mmol/L (98-107); CREATININE 1.3 mg/dL (0.6-1.3); GLUCOSE 92 mg/dL (74-106); POTASSIUM 3.9 mmol/L (3.5-5.1); SODIUM SERUM 141 mmol/L (136-145); UREA NITROGEN, BLOOD 20 mg/dL (7-18)
[2021-03-07 19:30] LABS: ALANINE AMINOTRANSFERASE 19 U/L (12-78); ALBUMIN 3.7 g/dL (3.4-5.0); ALCOHOL, BLOOD < 3 mg/dL (0-0); ALKALINE PHOSPHATASE 73 U/L (46-116); ASPARTATE AMINOTRANSFERASE 15 U/L (15-37); BILIRUBIN,DIRECT 0.2 mg/dL (0.0-0.2); BILIRUBIN,TOTAL 0.6 mg/dL (0.2-1.0); TOTAL PROTEIN, SERUM 6.6 g/dL (6.4-8.2)
[2021-03-07 19:31] LABS: ACETAMINOPHEN < 0 ug/ml (10-30)
--- NOTE | 2021-03-07 20:08 | NUR ---
URINE COLLECTED, SENT TO LAB.
--- NOTE | 2021-03-07 21:26 | NUR ---
AWAITING PSYCH EVAL.
--- NOTE | 2021-03-07 23:14 | NUR ---
PAGED CREDIT REPRESENTATIVE. NO ANSWER AND MESSAGE LEFT.
--- NOTE | 2021-03-08 00:15 | NUR ---
AMBULATED TO THE RESTROOM AND BACK. SITTER AT BEDSIDE.
--- NOTE | 2021-03-08 01:50 | NUR ---
NABIL LOPEZ RN CHAINSTITCH PANTS OUTSEAMER AT BEDSIDE TO [place].
--- NOTE | 2021-03-08 02:45 | NUR ---
PT STATED HE HAS NO WAY OF GETTING HOME.
--- NOTE | 2021-03-08 05:47 | NUR ---
RESTING IN BED COMFORTABLY.
[2021-03-08 07:18] VITALS: BP 135/75
--- NOTE | 2021-03-08 07:18 | NUR ---
PT AAOX4. AMBULATORY WITH STEADY GAIT. REQUESTED TO LEAVE ED. VSS. AMBULATED OUT OF ED. DISCHARGED.
== END 2021-03-08 07:18 | disposition home or self-care (01) ==
LOC: ER 18:12
DX: R45.851 Suicidal ideations (principal); I10 Essential (primary) hypertension; F32.9 Major depressive disorder, single episode, unspecified; F25.9 Schizoaffective disorder, unspecified; E78.5 Hyperlipidemia, unspecified; Z90.89 Acquired absence of other organs; Z60.2 Problems related to living alone; Z79.899 Other long term (current) drug therapy
CPT/HCPCS: 36415; 80048-TC; 80076-TC; 81001; 85025-TC; G0480

== ENCOUNTER 2021-03-21 21:35 | Emergency (ER) | payer OTHER ==
[~2021-03-21] VITALS: Ht 172.7 cm; Wt 65.8 kg
--- NOTE | 2021-03-21 22:00 | NUR ---
TO ER BED 13 AMBULATORY C/O DEPRESSION AND ANXIETY. "I JUST FIND COMFORT WHEN IM IN THE HOSPITAL." DENSAMS SI/HI @ THIS TIME. PT WAS DISCHARGED FROM [facility] REAL ESTATE ACCOUNT EXECUTIVE PER PT REPORT. PT AAOX4 NO ACUTE DISTRESS NOTED, RESP EVEN AND UNLABORED. PT CALM AND COOPERATIVE AT THIS TIME. PENDING ER MD VALENTINO.
--- NOTE | 2021-03-21 23:55 | NUR ---
PT PROVIDED WITH WARM BLANKETS.
--- NOTE | 2021-03-22 02:18 | NUR ---
PT ASLEEP, NO ACUTE DISTRESS NOTED, RESP EVEN AND UNLABORED. CALL LIGHT WITHIN REACH. WILL CONTINUE TO MONITOR PT.
--- NOTE | 2021-03-22 04:16 | NUR ---
PT AMBULATORY TO THE BATHROOM WITH STEADY GAIT NOTED. PT AAOX4, NO ACUTE DISTRESS NOTED, RESP EVEN AND UNLABORED. PT REMAINS PAIN FREE AT THIS TIME.
--- NOTE | 2021-03-22 13:12 | NUR ---
Patient discharged to home in stable condition. Written and verbal after care instructions given. Patient verbalizes understanding of instruction.
[2021-03-22 13:13] VITALS: BP 129/68
== END 2021-03-22 13:14 | disposition home or self-care (01) ==
LOC: ER 21:41
DX: F32.9 Major depressive disorder, single episode, unspecified (principal); Z76.5 Malingerer [conscious simulation]; I10 Essential (primary) hypertension; Z90.89 Acquired absence of other organs; Z60.2 Problems related to living alone; Z79.899 Other long term (current) drug therapy

== ENCOUNTER 2021-03-29 00:37 | Inpatient (IN) | payer MEDICARE, OTHER ==
[~2021-03-29] VITALS: Ht 172.7 cm; Wt 69.4 kg
--- NOTE | 2021-03-29 00:45 | NUR ---
PT BIBRA AND [employer] C/O VISUAL HALLUCINATIONS. PT DENIES SI/HI, BUT REFUSES TO ANSWER ANY OTHER QUESTIONS. PT ATTACHED TO MONITOR AND POX. MD AT BEDSIDE. PT GIVEN BLANKET AND CALL LIGHT
[2021-03-29] MEDS ORDERED: LIDOCAINE 2% JEL UROJET 10 ML MM ONE (01:00)
[2021-03-29 01:08] LABS: BASOPHILS % (AUTO) 0.3 % (0.0-2.0); HEMATOCRIT 40 % (39-51); HEMOGLOBIN 13.9 g/dL (13.5-17.5); LYMPHOCYTES # (AUTO) 1.1 K/uL (0.8-4.8); LYMPHOCYTES % (AUTO) 11.9 % (20.0-44.0); MEAN CORPUSCULAR HGB CONC 35 g/dl (31.0-36.0); MEAN CORPUSCULAR VOLUME 90 fL (80-96); MONOCYTES # (AUTO) 0.9 K/uL (0.1-1.30); MONOCYTES % (AUTO) 9.3 % (2.0-12.0); NEUTROPHILS # (AUTO) 7.2 K/uL (1.8-8.9); NEUTROPHILS % (AUTO) 77.5 % (43.0-81.0); PLATELET COUNT (AUTO) 253 K/uL (150-450); RED BLOOD CELL COUNT(AUTO) 4.49 MIL/uL (4.5-6.0); WHITE BLOOD COUNT (AUTO) 9.3 K/uL (4.3-11.0)
[2021-03-29 01:15] LABS: CALCIUM, SERUM 9.9 mg/dL (8.5-10.1); CARBON DIOXIDE 18 mmol/L (21-32); CHLORIDE 108 mmol/L (98-107); CREATININE 1.6 mg/dL (0.6-1.3); GLUCOSE 101 mg/dL (74-106); POTASSIUM 3.4 mmol/L (3.5-5.1); SODIUM SERUM 142 mmol/L (136-145); UREA NITROGEN, BLOOD 18 mg/dL (7-18)
--- NOTE | 2021-03-29 01:15 | NUR ---
TAKEN TO CT
[2021-03-29 01:27] LABS: ALANINE AMINOTRANSFERASE 19 U/L (12-78); ALBUMIN 4.1 g/dL (3.4-5.0); ALCOHOL, BLOOD < 3 mg/dL (0-0); ALKALINE PHOSPHATASE 68 U/L (46-116); ASPARTATE AMINOTRANSFERASE 16 U/L (15-37); BILIRUBIN,DIRECT 0.2 mg/dL (0.0-0.2); BILIRUBIN,TOTAL 0.9 mg/dL (0.2-1.0)
[2021-03-29 01:29] LABS: ACETAMINOPHEN 0 ug/ml (10-30)
--- NOTE | 2021-03-29 01:32 | NUR ---
URINE SENT TO LAB
[2021-03-29 01:37] LABS: BILIRUBIN,URINE SMALL (NEGATIVE); COLOR,URINE YELLOW (YELLOW); LEUKOCYTE ESTERASE ,URINE Trace (NEGATIVE); NITRITE, URINE Negative (NEGATIVE); PROTEIN,URINE Trace mg/dl (NEGATIVE); UGLUCOSE Negative (NEGATIVE); UROBILINOGEN,URINE 0.2 EU/dL (0.2)
[2021-03-29 02:21] LABS: RBC,URINE 51-80 /HPF (0-2)
[2021-03-29 02:22] LABS: BACTERIA,URINE Moderate /HPF (None Seen); SQUAMOUS EPITHELIAL CELL,UR Few /HPF (None Seen)
[2021-03-29 02:29] LABS: ABG BASE EXCESS -3.7 mmol/L; ABG OXYGEN SATURATION 96.5 % (92.0-98.5); ABG PCO2 27.9 mmHg (35.0-45.0); ABG PH 7.448 (7.350-7.450); ABG PO2 96.3 mmHg (75.0-100.0); MetHb 0.4 % (0.0-1.5); O2Hb 96.1 % (94.0-97.0); SITE, ABG Right Radial; VENT MODE, BG Room Air
--- NOTE | 2021-03-29 03:15 | NUR ---
PT ATTACHED TO POX AND MONITOR. EASILY AROUSABLE.
--- NOTE | 2021-03-29 04:51 | NUR ---
IS THE FAX FOR [facility] . FAXING CLINICALS, FACESHEET, AND COVID RESULT NOW.
--- NOTE | 2021-03-29 05:44 | NUR ---
CALLED SHANTEL FOR PSYCH EVAL. VOICEMAIL LEFT.
--- NOTE | 2021-03-29 05:45 | NUR ---
LUISITO FROM [facility] CALLED TO LET US KNOW PT MAY BE A PSYCH CASE. WILL CALL LATER TO CONFIRM PSYCH EVAL WAS DONE BY SHANTEL.
--- NOTE | 2021-03-29 05:52 | NUR ---
PAGED JOSE FOR PSYCH EVAL SINCE SHANTEL IS NOT THE NUT BLANKER OPERATOR GRANT MANAGER THIS MORNING. JOSE WAS INFORMED OF THE PT CONDITION AND IS ON HER WAY.
--- NOTE | 2021-03-29 07:05 | NUR ---
gave report to saleem smith for debby
--- NOTE | 2021-03-29 07:23 | NUR ---
JOSE WILL BE BACK IN 4 TO 5 HOURS TO EVALUATE.
[2021-03-29] MEDS ORDERED: LORAZEPAM INJ 2 MG/ML VIAL IM ONE ×2 (07:30→17:00)
[2021-03-29] MEDS ORDERED: OLANZAPINE 10 MG VIAL IM ONE ×4 (07:30→17:06)
--- NOTE | 2021-03-29 07:32 | NUR ---
The patient awake. Alert and able to communicate verbally. The patient is in no apparent distress. Attached to the monitor. Warm blanket provided for comfort. Will contnue to monitor the patient.
[2021-03-29] MEDS ORDERED: LORAZEPAM INJ 2 MG/ML VIAL ONE ×2 (07:53→17:07)
--- NOTE | 2021-03-29 10:19 | NUR ---
Patient is resting comfortably in bed with eyes closed. Easily aroused. VSS
--- NOTE | 2021-03-29 11:30 | NUR ---
LEIA DANIEL [phone].
--- NOTE | 2021-03-29 15:10 | NUR ---
RECEIVED A CALL FROM JOSE AND WANTED TO CHECK ON THE STATUS OF THE PATIENT. STILL HERE AND WILL COME RE-EVAL PATIENT IN 1 HOUR.
--- NOTE | 2021-03-29 15:37 | NUR ---
SS Note: SW met with pt. bedside. The pt. is A&O x 3 with poor eye contact. Pt. appears wellgroomed. Pt.'s mood is anxious with distressed affect.Pt.'s is guarded and responds to question with a few words. Pt. states that he came in to the hospital because he "wasn't feeling so good". SW encouraged pt. to elaborate. Pt. stated he does not want to live anymore. Pt. states he has had 1 previous SI attempt. Pt. denies active suicide plan .Pt. denies HI and denies hallucinations. SW offered voluntary placement and pt. is agreeable. SW provided pt. with mental health resources and pt accepted them. Plan: SW referred pt. to [facility] [[address] [place] [address] FAX:[phone]] for inpatient psychiatric treatment. RIMA also discussed with butane compressor operator, Betty who stated that she will re-evaluate the pt. and potentially place him on a hold if he meets criteria. Noted. [facility] [address], [place] [address] (Specializes in in-depth psychotherapy for emotional distress: anxiety, depression, interpersonal conflicts, life transitions, childhood abuse) [facility] [address] [place] [address] (Assist with solving problem marital difficulties, separation & divorce, aging parents, & grief, chronic & terminal illness) [facility] [address] [place] [address] (Deal with loss & grief, anxiety, marital difficulties) [facility] [address] [facility] [address] [place] [address] (Provide in-home mental services to people who are incapable of leaving their homes) [facility] [address] [place] [address] [facility] [address] [place] [address] PSYCHIATRIC OUTPATIENT SERVICES [facility] Partial Hospitalization and Intensive Outpatient Program (Managed Care and Gonzalez Only) [address] [place] [address]; [phone] [facility] Partial Hospitalization and Outpatient Program [address] [place] [address]; [phone] [facility] Partial Hospitalization and Outpatient Program [address] [place] [address]; [phone] [facility] [address] [place], [place] [phone] [facility] Partial Hospitalization and Outpatient [address] [place], [place] ; [phone] ;[phone] [facility] [address] [facility] [place] [address] Mental Health Services [facility] [address] [place] [address] Services: Outpatient therapy for children, teens, young adults, adults, older adults, and families; Psychiatric services, medication support [place] Crisis and Hotline Telephone Numbers: 24-Hour service unless stated [place] Mental Health/Crisis Line........[phone] Suicide Prevention Center (24 Hours).......[phone] Suicide Prevention Crisis Center.......[phone] (24 Hours) Alcoholics Anonymous (24 Hours)..........[phone] National Crisis Hotlines: Alcohol and Drug Helpline - Provides referrals to local facilities where adolescents and adults can seek help. Brief intervention. [facility]ACOB Helpline [facility] [place] [facility] 5-151-845-428-241-YCBV National Youth Crisis Hotline [place] [facility] Provides free information on specific disorders, referral directory to mental health providers, national directory of local mental health associations (M-F, 9-5 EST) [place] [facility] Information Line: Provide sinformation and literature on mental illness by disorder-for professionals and general public.
--- NOTE | 2021-03-29 16:31 | NUR ---
CLINICIAN JOSE AT THE BEDSIDE
--- NOTE | 2021-03-29 17:48 | NUR ---
Maico hawk in [facility] - 03/29/21 at 1751 by IMELDA BARBARA [phone]
--- NOTE | 2021-03-29 17:49 | NUR ---
BARBARA [phone]
--- NOTE | 2021-03-29 18:11 | NUR ---
JOSE LEFT ME CONTACT INFORMATION FOR THIS PATIENT FOR REGALS AFTER HOURS. WORKERS NAME IS BARBARA. CONTACT: [phone] OR [phone]
--- NOTE | 2021-03-30 02:30 | NUR ---
pt sleeping in [facility]. no signs of distress noted. will cont to monitor pt.
--- NOTE | 2021-03-30 08:22 | NUR ---
THE PATIENT SLEEPING IN BED. RESPONSIVE TO VERBAL STIMULI. RESPIRATION EVEN AND UNLABORED. WILL CONTINUE TO MONITOR THE PATIENT.
--- NOTE | 2021-03-30 11:05 | NUR ---
D/C Planning: This SW called [facility] patient case coordinatorRenay [phone] and left voicemail inquiring about placement at psychiatric facility. SW will remain available as needed.
--- NOTE | 2021-03-30 12:13 | NUR ---
RECEIVED A CALL FROM [facility]. PT HAS BEEN AUTHORIZED TO BE ADMITTED UNDER [facility].
[2021-03-30] MEDS ORDERED: TEMA15CA PO (12:14)
--- NOTE | 2021-03-30 12:18 | NUR ---
ROOM 212-2
--- NOTE | 2021-03-30 12:38 | NUR ---
REPORT GIVEN TO NURSE PENG FROM [facility]
--- NOTE | 2021-03-30 14:19 | NUR ---
The patient is transfered to assigned room in stable condition and per policy.
[2021-03-30] MEDS ORDERED: MAGNESIUM HYDROXIDE 30 ML UDC PO PRN (14:30)
[2021-03-30] MEDS ORDERED: BLOOD SUGAR DIAGNOSTIC 1 EACH STRIP IN ONE (14:30)
[2021-03-30] MEDS ORDERED: clonazePAM 0.5 MG TABLET PO PRN (14:30)
[2021-03-30] MEDS ORDERED: TEMAZEPAM 7.5 MG CAPSULE PO PRN (14:30)
[2021-03-30] MEDS ORDERED: ACETAMINOPHEN 325 MG TABLET PO PRN (14:30)
[2021-03-30] MEDS ORDERED: MAG HYDROX/AL HYDROX/SIMETH 30 ML UDC PO PRN (14:30)
--- NOTE | 2021-03-30 14:35 | NUR ---
POC BLOOD GLUCOSE 73. GAVE PT CRACKERS AND JUICE. WILL RETAKE.
[2021-03-30] MEDS: LORAZEPAM 0.5 MG TABLET PO PRN (15:46)
--- NOTE | 2021-03-30 15:47 | NUR ---
RN NOTE: ANXIETY AND AGITATION PT PACING. UNABLE TO STAND STILL. PARANOID. BELIEVES PEOPLE ARE OUT TO "CUT THINGS FROM MY BODY". MEDICATED WITH ATIVAN 0.5 MG PO PRN
[2021-03-30 15:59] VITALS: BP 129/93
[2021-03-30 16:00] VITALS: BP 129/93
--- NOTE | 2021-03-30 16:00 | NUR ---
POC BLOOD GLUCOSE 124. PT AWAKE AND ALERT. NO DISTRESS NOTED AT THIS TIME.
--- NOTE | 2021-03-30 17:39 | NUR ---
DR COTTON ENTERED ORDERS FOR PT. DR CAM CONTACTED AND INFORMED OF PATIENT'S UA RESULTS. DR CAM STATED THAT HE WILL TALK TO ER DOCTOR AND WILL CALL [facility] BACK FOR FURTHER ORDERS.
--- NOTE | 2021-03-30 17:40 | NUR ---
Pt. arrived in the unit via wheelchair by ER staff to the unit and placed on room 212 bed B. When evaluated, Pt was shaking and very nervous, he informed clinician that he is afraid that someone will cut something out of his body, he urinated on the floor by his bed. Pt informed clinician thst he was recently discharged from a psychiatric hospital and is not taking his medication because he does not think it works.Pt. admitted on 5150 for DTS and GD. Pt. is alert/ oriented x2, contraband done, skin assessment done intact pt refused pictures. Dr. Oneil made aware of the admission and put in orders. Dr Castaneda contacted and made aware of admission and pt's urinalysis results. Dr Castaneda stated that he will contact [facility] ER doctor for report and will contact [facility] GPS for further orders. vital signs at time of admission: BP129/93, HR 97, RR 20, Temp 97.5, SATS 95%. Will endorse to the incoming nurse for the completion of the admission.
[2021-03-30] MEDS: LITHIUM CARBONATE 150 MG CAPSULE PO SCH (17:46)
[2021-03-30 21:17] VITALS: BP 143/80
[2021-03-31 08:00] VITALS: BP 119/64
[2021-03-31] MEDS: BENZTROPINE MESYLATE (1 MG) 1 MG TABLET PO SCH ×2 (08:33→16:41)
[2021-03-31] MEDS: risperiDONE 1 MG TABLET PO SCH ×2 (08:34→16:41)
[2021-03-31] MEDS: LITHIUM CARBONATE 150 MG CAPSULE PO SCH ×2 (08:34→16:41)
[2021-03-31] MEDS: LORAZEPAM 0.5 MG TABLET PO PRN ×2 (09:57→20:42)
--- NOTE | 2021-03-31 09:57 | NUR ---
RN NOTE: ANXIETY PT PARANOID ANXIOUS . MEDICATED WITH ATIVAN 0.5 MG PO PRN
--- NOTE | 2021-03-31 10:30 | NUR ---
Utilization Review Note RIMA contacted [facility] to discuss pt's D/C plan with pt's complex case manager. LEIA Rivero (ph: [phone]) reported to RIMA that pt would benefit from either homehealth, board and care, or an IOP program. LEIA instructed RIMA to [place] [facility] [place]fax: [phone][place] next Sunday, 04/05.
[2021-03-31 11:44] LABS: BILIRUBIN,TOTAL 0.6 mg/dL (0.2-1.0); CALCIUM, SERUM 9.5 mg/dL (8.5-10.1); CREATININE 1.2 mg/dL (0.6-1.3); POTASSIUM 4.1 mmol/L (3.5-5.1)
--- NOTE | 2021-03-31 14:15 | NUR ---
Initial Discharge Plan Pt plans to return home with homehealth if he is able to secure his prior living arrangement or to a board and care. Pt's [facility] child support case officer, Josefa (ph: [phone]) recommended options for D/C-homehealth, board and care, or an IOP program. SW will work with the pt and MD regarding appropriate D/C planning, SW will form a safe and proper D/C plan.
--- NOTE | 2021-03-31 14:20 | NUR ---
Board and Care Referral RIMA faxed clinicals to Samanta at placement agency ( ), for board and care placement.
[2021-03-31 16:00] VITALS: BP 113/64
[2021-03-31 20:00] VITALS: BP 104/53
--- NOTE | 2021-03-31 20:43 | NUR ---
RN NOTES: ANXIETY PT. C/O FEELING ANXIOUS , RESTLESS ATIVAN 0.5 MG PO PRN GIVEN , WILL CONTINUE TO MONITOR.
[2021-03-31 22:30] VITALS: BP 118/69
[2021-04-01 08:00] VITALS: BP 129/84
[2021-04-01] MEDS: LITHIUM CARBONATE 150 MG CAPSULE PO SCH ×2 (08:45→16:25)
[2021-04-01] MEDS: risperiDONE 1 MG TABLET PO SCH ×2 (08:45→16:25)
[2021-04-01] MEDS: BENZTROPINE MESYLATE (1 MG) 1 MG TABLET PO SCH ×2 (08:45→16:25)
--- NOTE | 2021-04-01 09:41 | NUR ---
RN OPENING NOTE PT. IN THE ROOM RESTING IN BED NO DISTRESS OR AGITATION NOTED.COMPLIANT WITH MEDICATIONS NO C/O PAIN OR DISCOMFORT. SAFETY ENVIRONMENT OBSERVED AT ALL TIMES. MED COMPLIANT. WILL CONTINUE TO MONITOR Q 15 MIN FOR SAFETY AND BEHAVIOR.
--- NOTE | 2021-04-01 12:50 | NUR ---
Utilization Review Note RIMA received call from [facility]: LEIA Rivero (ph: [phone]) requesting medication list and 03/31/2021 progress note. RIMA faxed clinicals to [facility] (fax: [phone]).
[2021-04-01] MEDS: LORAZEPAM 0.5 MG TABLET PO PRN ×2 (13:36→20:45)
--- NOTE | 2021-04-01 14:23 | NUR ---
Board and Care Referral RIMA received call from Samanta at placement agency ( ), who stated that she found a [facility] that may be able to accept the pt. RIMA spoke to Kamilah [phone] direct care provider of [facility] [Yancy Santillan] who asked if pt. may be able to provide payment by check upon arrival. SW discussed [facility] placement with pt. and he stated he wants to think about it. Pt. stated he could provide a check as payment method upon arrival. Pt. also stated, "it is not making sense right now" I may want to go home. However, pt. told RIMA Zoila yesterday that he does not if he is able to return to his apartment anymore. RIMA will continue to discuss d/c plan with patient when he has stabilized further. RIMA informed Kamilah that pt. would like to think about it ans she expressed understanding. RIMA also left Josefa Jewell CM voicemail about this matter. RIMA will continue to collaborate with psychiatry for safe & proper D/C planning. RIMA faxed clinicals to to Kamilah [phone] direct care provider of [facility] [[id number] [employer] [employer] Santillan] FAX: [phone].
[2021-04-01 16:00] VITALS: BP 128/73
--- NOTE | 2021-04-01 18:10 | NUR ---
RN CLOSING NOTE PT RESTING IN BED COMFORTABLY. COOPERATIVE, PARANOID, AND GUARDED. ANXIOUS IN PERIODS. DENIES ANY SI/HI/AVH. MED COMPLIANT. SAFETY PRECAUTIONS IN PLACE. Q15 MINUTE CHECKS SIGNED. WILL GIVE REPORT TO NIGHT NURSE FOR PIETRO.
--- NOTE | 2021-04-01 20:00 | NUR ---
GPS RN NOTE, DR CAMILO CAM HAS NOT SEEN THIS PATIENT TODAY. PAGED [facility] AND INFORMED VANDANA DELVALLE DNP OF MY FINDINGS. VANDANA DELVALLE DNP SAID HE WILL THIS PATIENT WHEN HAS TIME. WILL CONTINUE TO MONITOR THIS PATIENT. WILL CALL DR CAMILO CAM IN A.M. TO SEE IF HE WANTS TO RELINQUISH THIS PATIENT TO [facility] TO ASSUME MEDICAL CARE.
[2021-04-01 20:32] VITALS: BP 101/52
--- NOTE | 2021-04-01 20:46 | NUR ---
RN NOTES: ANXIETY PT. C/O FEELING ANXIOUS , RESTLESS, PACING IN HALLWAY ATIVAN 0.5 MG PO PRN GIVEN , WILL CONTINUE TO MONITOR.
--- NOTE | 2021-04-02 06:55 | NUR ---
GPS RN NOTE, PAGED DR CAMILO CAM THIS A.M. AND INFORMED HIM THAT HE HAS NOT SEEN THIS PATIENT SINCE PATIENT THIS PATIENT BEEN ADMITTED. DR CAMILO CAM GAVE ORDER TO CALL ADMITTING TO HAVE THIS PATIENT MEDICAL SERVICE CHANGE TO [facility]. ALL ORDERS NOTED AND CARRIED OUT AND I WILL CONTINUE TO MONITOR THIS PATIENT.
[2021-04-02 08:00] VITALS: BP 95/61
[2021-04-02] MEDS: LITHIUM CARBONATE 150 MG CAPSULE PO SCH ×2 (08:49→16:24)
[2021-04-02] MEDS: risperiDONE 1 MG TABLET PO SCH ×2 (08:52→16:23)
[2021-04-02] MEDS: BENZTROPINE MESYLATE (1 MG) 1 MG TABLET PO SCH ×2 (08:52→16:24)
[2021-04-02 16:00] VITALS: BP_SYST 102; BP_SYST 109; BP_DIAS 61
[2021-04-02 20:00] VITALS: BP 106/59
[2021-04-02 20:18] VITALS: BP 106/59
[2021-04-02] MEDS: SIMVASTATIN 20 MG TABLET PO SCH (21:18)
[2021-04-02] MEDS: LORAZEPAM 0.5 MG TABLET PO PRN (23:11)
--- NOTE | 2021-04-02 23:13 | NUR ---
RN NOTES: PATIENT STARTED PACING AND LOOKS ANXIOUS, HE ASK FOR HIS PRN MEDICATION, TRIED TO DIVERT HIS ATTENTION AND SUGGEST SOME BREATHING TECHNIQUE TO MAKE HIM RELAX.PRN ATIVAN GIVEN PER PATIENT REQUEST.
--- NOTE | 2021-04-03 06:50 | NUR ---
RN NOTES: SLEEP WELL IN THE NIGHT, AFTER HIS PRN MEDICATION NO PERIODS OF ANXIOUSNESS OR PARANOIA THOUGHTS,STILL ASLEEP,ENDORSED FOR CONTINUITY OF CARE.
[2021-04-03 08:11] LABS: BASOPHILS % (AUTO) 0.2 % (0.0-2.0); EOSINOPHILS % (AUTO) 2.7 % (0.0-6.0); HEMATOCRIT 41 % (39-51); HEMOGLOBIN 14.1 g/dL (13.5-17.5); LYMPHOCYTES # (AUTO) 0.8 K/uL (0.8-4.8); LYMPHOCYTES % (AUTO) 13.1 % (20.0-44.0); MEAN CORPUSCULAR HGB CONC 34 g/dl (31.0-36.0); MEAN CORPUSCULAR VOLUME 91 fL (80-96); MONOCYTES # (AUTO) 0.3 K/uL (0.1-1.30); MONOCYTES % (AUTO) 4.6 % (2.0-12.0); NEUTROPHILS # (AUTO) 4.8 K/uL (1.8-8.9); NEUTROPHILS % (AUTO) 79.4 % (43.0-81.0); PLATELET COUNT (AUTO) 236 K/uL (150-450); RED BLOOD CELL COUNT(AUTO) 4.52 MIL/uL (4.5-6.0); WHITE BLOOD COUNT (AUTO) 6.1 K/uL (4.3-11.0)
[2021-04-03] MEDS: LITHIUM CARBONATE 150 MG CAPSULE PO SCH ×2 (08:28→16:02)
[2021-04-03] MEDS: risperiDONE 1 MG TABLET PO SCH ×2 (08:28→16:01)
[2021-04-03] MEDS: BENZTROPINE MESYLATE (1 MG) 1 MG TABLET PO SCH ×2 (08:28→16:01)
[2021-04-03 08:56] LABS: BILIRUBIN,TOTAL 0.5 mg/dL (0.2-1.0); CALCIUM, SERUM 9.7 mg/dL (8.5-10.1); CREATININE 1.2 mg/dL (0.6-1.3); POTASSIUM 4.1 mmol/L (3.5-5.1); TOTAL PROTEIN, SERUM 7.1 g/dL (6.4-8.2)
[2021-04-03 16:00] VITALS: BP 118/64
--- NOTE | 2021-04-03 20:00 | NUR ---
GPS-RN NOTES: PATIENT REFUSED WEEKLY SKIN ASSESSMENT.
[2021-04-03 20:23] VITALS: BP 125/64
[2021-04-03] MEDS: SIMVASTATIN 20 MG TABLET PO SCH (21:06)
[2021-04-04 08:00] VITALS: BP 118/73
[2021-04-04] MEDS: BENZTROPINE MESYLATE (1 MG) 1 MG TABLET PO SCH ×2 (08:33→16:49)
[2021-04-04] MEDS: risperiDONE 1 MG TABLET PO SCH ×2 (08:33→16:49)
[2021-04-04] MEDS: LITHIUM CARBONATE 150 MG CAPSULE PO SCH ×3 (08:34→16:49)
[2021-04-04 16:00] VITALS: BP 119/69
[2021-04-04 20:00] VITALS: BP 99/56
[2021-04-04] MEDS: SIMVASTATIN 20 MG TABLET PO SCH (21:28)
[2021-04-04] MEDS: LORAZEPAM 0.5 MG TABLET PO PRN (21:28)
--- NOTE | 2021-04-04 21:34 | NUR ---
GPS SEAN NOTES: ATIVAN 5MG/1TAB GIVEN PO FOR ANXIETY AT 2127. Addendum: 04/04/21 at 2136 by NAGI PICKETT RN ATIVAN 0.5MG/1TAB GIVEN PO PRN FOR ANXIETY AT 2127
[2021-04-05 08:00] VITALS: BP 121/80
[2021-04-05] MEDS: risperiDONE 1 MG TABLET PO SCH ×2 (08:10→16:12)
[2021-04-05] MEDS: BENZTROPINE MESYLATE (1 MG) 1 MG TABLET PO SCH ×2 (08:11→16:12)
[2021-04-05] MEDS: LITHIUM CARBONATE 150 MG CAPSULE PO SCH ×3 (08:11→16:12)
[2021-04-05] MEDS: LORAZEPAM 0.5 MG TABLET PO PRN ×2 (12:29→20:23)
--- NOTE | 2021-04-05 12:30 | NUR ---
RN-CO: ATIVAN GIVEN FOR MODERATE ANXIETY.
[2021-04-05 16:00] VITALS: BP_SYST 105; BP_SYST 128; BP_DIAS 55; BP_DIAS 80
--- NOTE | 2021-04-05 16:03 | NUR ---
RN-CO:RECEIVED PATIENT AWAKE AND COMPLAINT WITH MEDICATIONS. NEEDS PROMPTS IN ADL.DENIES SUICIDAL AND HOMICIDAL IDEATIONS. DENIES COMMAND HALLUCINATIONS. ABLE TO VERBALIZED HIS FEELINGS.
--- NOTE | 2021-04-05 16:42 | NUR ---
Utilization Review Note: RIMA received call from [facility]: LEIA Rivero (ph: [phone]) requesting medication list and progress notes from weekend. RIMA faxed clinicals [place] [facility] (fax: [phone]).
[2021-04-05 20:00] VITALS: BP 110/62
--- NOTE | 2021-04-05 20:24 | NUR ---
RN NOTES: ANXIETY PT.C/O FEELING ANXIOUS , ATIVAN 0.5 MG PO PRN GIVEN PER PT. REQUEST, WILL CONTINUE TO MONITOR.
[2021-04-05] MEDS: SIMVASTATIN 20 MG TABLET PO SCH (21:35)
--- NOTE | 2021-04-06 06:47 | NUR ---
RN NOTES: COVID TEST COLLECT , SEND OUT TO THE LAB.
[2021-04-06 08:00] VITALS: BP 110/66
[2021-04-06] MEDS: LITHIUM CARBONATE 150 MG CAPSULE PO SCH ×2 (08:42→12:14)
[2021-04-06] MEDS: LORAZEPAM 0.5 MG TABLET PO PRN (08:42)
[2021-04-06] MEDS: BENZTROPINE MESYLATE (1 MG) 1 MG TABLET PO SCH (08:42)
[2021-04-06] MEDS: risperiDONE 1 MG TABLET PO SCH (08:42)
--- NOTE | 2021-04-06 08:42 | NUR ---
RN NOTE: ANXIETY AND AGITATION PT EXHIBITING INCREASED ANXIETY AND AGITATION. PACING THE HALLWAY. UNABLE TO IMPLEMENT COPING SKILLS. RUMINATING RE DISCHARGE THIS AFTERNOON. MEDICATED WITH ATIVAN 0.5 MG PO PRN
--- NOTE | 2021-04-06 10:30 | NUR ---
Utilization Review note RIMA contacted Josefa (ph: [phone]) and was instructed to fax ([phone]) D/C summary to [facility] once the pt is D/C. Josefa informed RMIA that she would be working on the pt's aftercare appointments and will notify RIMA once they are scheduled.
[2021-04-06 16:00] VITALS: BP 108/56
--- NOTE | 2021-04-06 16:20 | NUR ---
HOT PIPE GAUGER NOTE: 70 YEAR OLD MALE DISCHARGED TO [facility] IN STABLE CONDITION. COMPLIANT WITH MEDICATIONS, COOPERATIVE WITH TREATMENT PLANS. PATIENT DENIES SI/HI AND INSTRUCTED TO GO TO THE CLOSEST ER IF DEVELOPING SI/HI. BEHAVIOR IMPROVED, PSYCHIATRIC TREATMENT PLANS MET, MEDICAL TREATMENT PLANS DEFERRED FOR CONTINUAL MONITORING. EDUCATED PT ABOUT AFTER CARE PLAN AND COPY PROVIDED. RETURNED PERSONAL BELONGINGS TO PATIENT. MEDICATIONS RECONCILED WITH DR. COTTON AND GWYN LOVING. PATIENT REFUSED TO SIGN DISCHARGE PAPER WORK. SKIN INTACT ON ADMIT AND DISCHARGE. PT LEFT THE UNIT AT 1620 VIA AMBULATION. TRANSFER OF RESPONSIBILTY SIGNED BY EMPLOYEE OF [facility].
--- NOTE | 2021-04-07 10:02 | NUR ---
SS D/C NOTE Pt was D/C to [place] [facility] ([address] [place] [address]; [phone]). Pt was picked up by [facility] major account representative on 04/06/21 at 1600. Pt has no family involved in his care. Pt was A&O x4 with a depressed mood and affect. Pt denied suicidal and homicidal ideation as well as auditory and visual hallucinations. Pt ambulates independently. Pt will be under the care of a psychiatrist and computer equipment installer, assigned to him upon admission. The choice of vendor form and multidisciplinary exit care form were done, printed, signed and given to the patient.
--- NOTE | 2021-04-13 09:45 | NUR ---
SS note SW faxed clinicals to Josefa at [facility] ([phone]) per request. Pending D/C summary report to fax when available.
== END 2021-04-06 16:20 | disposition home or self-care (01) | DRG 885 ==
LOC: ER 00:39 → GPS 03-30 13:30
PROVIDERS: ADMIT Psychiatry & Neurology Psychosomatic Medicine; ATTEND Internal Medicine
DX: F25.0 Schizoaffective disorder, bipolar type (principal); N17.9 Acute kidney failure, unspecified; I10 Essential (primary) hypertension; Z20.822 Contact with and (suspected) exposure to COVID-19; E78.5 Hyperlipidemia, unspecified; E87.6 Hypokalemia; Z86.73 Personal history of transient ischemic attack (TIA), and cerebral infarction without residual deficits; Z87.891 Personal history of nicotine dependence; F29 Unspecified psychosis not due to a substance or known physiological condition; Z79.899 Other long term (current) drug therapy
CPT/HCPCS: 36415; 36600; 70450-TC; 80048-TC; 80053-TC; 80061-TC; 80076-TC; 81001; 82010-TC; 82140-TC; 82803-TC; 83605-TC; 85025-TC; 87086-TC; C9803; G0480; J2060; J3490

== ENCOUNTER 2021-10-06 12:27 | Inpatient (IN) | payer OTHER ==
[~2021-10-06] VITALS: Ht 172.7 cm; Wt 74.8 kg
--- NOTE | 2021-10-06 12:42 | NUR ---
DR CRAWFORD AT BEDSIDE
--- NOTE | 2021-10-06 13:00 | NUR ---
URINE SAMPLE SENT TO LAB
[2021-10-06 13:19] LABS: BASOPHILS % (AUTO) 0.5 % (0.0-2.0); EOSINOPHILS % (AUTO) 3.5 % (0.0-6.0); HEMATOCRIT 41 % (39-51); LYMPHOCYTES % (AUTO) 13.6 % (20.0-44.0); MEAN CORPUSCULAR HGB CONC 34 g/dl (31.0-36.0); MEAN CORPUSCULAR VOLUME 90 fL (80-96); MONOCYTES # (AUTO) 0.6 K/uL (0.1-1.30); MONOCYTES % (AUTO) 8.6 % (2.0-12.0); NEUTROPHILS # (AUTO) 5.4 K/uL (1.8-8.9); NEUTROPHILS % (AUTO) 73.8 % (43.0-81.0); PLATELET COUNT (AUTO) 237 K/uL (150-450); WHITE BLOOD COUNT (AUTO) 7.3 K/uL (4.3-11.0)
[2021-10-06 13:51] LABS: BILIRUBIN,URINE NEGATIVE (NEGATIVE); COLOR,URINE YELLOW (YELLOW); LEUKOCYTE ESTERASE ,URINE NEGATIVE (NEGATIVE); NITRITE, URINE NEGATIVE (NEGATIVE); PROTEIN,URINE NEGATIVE (NEGATIVE); UGLUCOSE NEGATIVE (NEGATIVE); UROBILINOGEN,URINE 0.2 EU/dL (0.2)
--- NOTE | 2021-10-06 14:27 | NUR ---
COVID SWAB DONE AND SENT TO LAB
[2021-10-06 14:59] LABS: CALCIUM, SERUM 9.8 mg/dL (8.5-10.1); CARBON DIOXIDE 28 mmol/L (21-32); CHLORIDE 106 mmol/L (98-107); CREATININE 1.3 mg/dL (0.6-1.3); GLUCOSE 89 mg/dL (74-106); SODIUM SERUM 141 mmol/L (136-145); UREA NITROGEN, BLOOD 21 mg/dL (7-18)
[2021-10-06 15:07] LABS: ALANINE AMINOTRANSFERASE 23 U/L (12-78); ALKALINE PHOSPHATASE 77 U/L (46-116); ASPARTATE AMINOTRANSFERASE 14 U/L (15-37); BILIRUBIN,DIRECT 0.1 mg/dL (0.0-0.2); BILIRUBIN,TOTAL 0.4 mg/dL (0.2-1.0); TOTAL PROTEIN, SERUM 7.1 g/dL (6.4-8.2)
[2021-10-06 15:09] LABS: ACETAMINOPHEN < 2 ug/ml (10-30)
[2021-10-06 15:11] LABS: BACTERIA,URINE None seen /HPF (None Seen); RBC,URINE 0-2 /HPF (0-2); WBC,URINE 0-2 /HPF (0-3)
[2021-10-06 15:12] LABS: MUCUS,URINE Few /LPF (None Seen); SQUAMOUS EPITHELIAL CELL,UR 0-2 /HPF (None Seen)
[2021-10-06 15:17] LABS: ALCOHOL, BLOOD < 3 mg/dL (0-0)
--- NOTE | 2021-10-06 15:39 | NUR ---
SW faxed clinicals to [facility] [phone] for voluntary psychiatric treatment at [facility] [[address] [place] [address] FAX:[phone]] or other locations.
--- NOTE | 2021-10-06 16:35 | NUR ---
KARLA DURAN [phone]
--- NOTE | 2021-10-06 17:25 | NUR ---
FAXED CLINICALS TO [facility] [phone]
[2021-10-06] MEDS ORDERED: LORAZEPAM 1 MG TABLET ONE (17:53)
[2021-10-06] MEDS ORDERED: LORAZEPAM 1 MG TABLET PO ONE (18:00)
--- NOTE | 2021-10-06 18:05 | NUR ---
DINNER TRAY PROVIDED. TOLERATED WELL
--- NOTE | 2021-10-06 18:30 | NUR ---
RENEE RN FOOD SERVICE DRIVER AT BEDSIDE
--- NOTE | 2021-10-06 19:19 | NUR ---
REPORT GIVEN TO PATSY ESTRADA FOR PIETRO
--- NOTE | 2021-10-06 21:51 | NUR ---
RE-FAXED CLINICALS TO [facility] [phone]
--- NOTE | 2021-10-07 05:51 | NUR ---
CALLED [facility] TO FOLLOW. AT THIS TIME STILL NO BEDS AVAILABLE. ADVICED TO CALL BACK AFTER SHIFT CHANGE AT 0700.
--- NOTE | 2021-10-07 08:00 | NUR ---
PT PROVIDED WITH BREAKFAST
--- NOTE | 2021-10-07 10:20 | NUR ---
FA[facility]ED CLINICALS TO [facility] [FAX: [phone], TELE: [phone]]
--- NOTE | 2021-10-07 10:41 | NUR ---
CALLED [facility] TO FOLLOW UP. AT THIS TIME THER ARE NO BEDS AVAILABLE.
--- NOTE | 2021-10-07 11:57 | NUR ---
FAXED CLINICALS OVER TO [facility] [FAX: [phone], TELE: [phone]], NO BEDS AVAILABLE AT THIS TIME.
--- NOTE | 2021-10-07 12:07 | NUR ---
FAXED CLINICALS TO [facility] [FAX: [phone], TELE: [phone]] AWAITING FOR RESPONSE.
--- NOTE | 2021-10-07 15:30 | NUR ---
Faxed clinicals over to [facility] [fax: [phone], tele:[phone]]
--- NOTE | 2021-10-07 15:45 | NUR ---
[facility]KK[facility] GARRISON CALLED AND WAS NOTIFIED THAT THE PT IS NOT ABLE TO GO TO THEIR FACILITY DUE TO NOT BEING SUICIDAL ANYMORE
[2021-10-07] MEDS ORDERED: LORAZEPAM 1 MG TABLET ONE (15:57)
[2021-10-07] MEDS ORDERED: LORAZEPAM 1 MG TABLET PO ONE (16:30)
--- NOTE | 2021-10-08 12:30 | NUR ---
LUNCH TRAY PROVIDED. TOLERATED WELL
[2021-10-08] MEDS ORDERED: ACETAMINOPHEN ES 500 MG TABLET PO ONE (15:00)
--- NOTE | 2021-10-08 16:05 | NUR ---
[facility] [phone] SHANTEL WILL CALL US BACK.
[2021-10-08] MEDS ORDERED: ACETAMINOPHEN ES 500 MG TABLET ONE (16:18)
--- NOTE | 2021-10-08 16:26 | NUR ---
FAXED CLINICALS TO [facility].
--- NOTE | 2021-10-08 17:14 | NUR ---
RADHA CALLED BACK MARINA [phone] NEED TO CALL SCAN JANE GOMEZ [phone]
--- NOTE | 2021-10-08 17:21 | NUR ---
CALLED [facility] [phone] OPTION 1 WILL RETURN OUR CALL PER JULIA.
--- NOTE | 2021-10-08 17:34 | NUR ---
CHRISTIE CALLED FROM [facility] . THEY NO LONGER WORK WITH RADHA
--- NOTE | 2021-10-08 17:36 | NUR ---
CALLED [facility]INA DUPREE [phone] VM ASKED TO ALSO CALL [phone] FOR LEIA
--- NOTE | 2021-10-08 17:38 | NUR ---
[facility] [phone] NEEDS BEHAVIORAL HEALTH. WE NEED HELP WITH PLACEMENT. TRANSFERED TO DELBERT CHAPIN.
--- NOTE | 2021-10-08 17:44 | NUR ---
MARINA CALLED AND WILL CALL US WITH A NUMBER THAT WE CAN CALL TO GET HELP WITH PLACEMENT.
--- NOTE | 2021-10-08 18:34 | NUR ---
MARINA CALLED HERE IS NEW NUMBER [facility] [phone] AFTER HOURS PLEASE CALL [phone]
--- NOTE | 2021-10-08 18:38 | NUR ---
CALLED [facility] [phone] THEY ARE CLOSED ON THE WEEKEND.
--- NOTE | 2021-10-08 18:39 | NUR ---
CALLED [phone] THIS NUMBER SEEMS TO BE INCORRECT.
--- NOTE | 2021-10-09 13:12 | NUR ---
TREE FROM [place] [phone] TO CHECK IF PT WAS DISCHARGED
--- NOTE | 2021-10-09 13:44 | NUR ---
CALLED [phone] TO SPEAK WITH A COORDINATOR. GEMA WILL CALL US BACK.
--- NOTE | 2021-10-09 13:59 | NUR ---
[facility] SHOE WORKER CALLED. FRANK CALL BACK# [phone], FAX [phone] REQUESTING FOR FACESHEET AND UPDATED CLINICALS.
--- NOTE | 2021-10-09 14:43 | NUR ---
EVETTE CALLED AND WILL FOLLOWUP.
[2021-10-09] MEDS ORDERED: LORAZEPAM 1 MG TABLET ONE (15:12)
--- NOTE | 2021-10-09 15:22 | NUR ---
RODDY FROM [facility] [phone]
[2021-10-09] MEDS ORDERED: LORAZEPAM 1 MG TABLET PO ONE (15:30)
--- NOTE | 2021-10-09 16:45 | NUR ---
KARLA PEREYRA FROM [facility] [phone] LEFT VM
--- NOTE | 2021-10-09 16:51 | NUR ---
[id number] RODDY [phone]
[2021-10-09] MEDS ORDERED: BUPR150T10 PO (17:40)
[2021-10-09] MEDS ORDERED: ATOR10TA PO (17:40)
--- NOTE | 2021-10-09 18:10 | NUR ---
CALLED DR. CAM
--- NOTE | 2021-10-09 18:27 | NUR ---
REPORT GIVEN TO MI FOR PIETRO, ASKED TO TRANSFER PT AT CHANGE OF SHIFT DUE TO UNAVAILABLE SITTER.
--- NOTE | 2021-10-09 19:38 | NUR ---
TRANSFERRE TO 215 IN STABLE CONDITION
[2021-10-09] MEDS ORDERED: ACETAMINOPHEN 325 MG TABLET PO PRN (20:30)
[2021-10-09] MEDS ORDERED: MAG HYDROX/AL HYDROX/SIMETH 30 ML UDC PO PRN (20:30)
[2021-10-09] MEDS ORDERED: BLOOD SUGAR DIAGNOSTIC 1 EACH STRIP IN ONE (20:30)
[2021-10-09] MEDS ORDERED: MAGNESIUM HYDROXIDE 30 ML UDC PO PRN (20:30)
[2021-10-09] MEDS: LORAZEPAM 0.5 MG TABLET PO PRN (20:50)
--- NOTE | 2021-10-09 20:51 | NUR ---
RN NOTES: ANXIETY PT. C/O ANXIOUS PARANOID , PACING IN HALLWAY , ATIVAN 0.5 MG PO GIVEN WILL CONTINUE TO MONITOR.
[2021-10-09 20:59] VITALS: BP 121/65
--- NOTE | 2021-10-09 22:07 | NUR ---
ADMITING NOTES: ADMITTED THIS 71Y/O MALE PATIENT ADMIT FROM [facility] /ED , ADMITTED TO GPS ON VOLUANTRY STATUS, PER ED REPORT , PT. FEELING VERY DEPRESSED, HAVING THOUGHTS OF HARMING HIMSELF , NOT SLEEPING ,FEELING HOPELESS AND HELPLESS AND HIS MEDICATIONS IS NOT WORKING AND PT. REQUESTING VOLUNTARY ADMISSION, UPON FACE TO FACE ASSESSMENT PATIENT IS A&O X 3, DEPRESSED, RESTLESS ANXIOUS , DISHELVED ,EASILY GETS AGITATED, PARANOID , COOPERTIVE AT THIS TIME DENIES SI /HI AT THIS TIME, PT. IS POOR HISTORIAN, POOR INSIGHT ,POOR JUDGEMENT, PT. DENIES SI HI AT THIS TIME, PER PT. I M FEELING SOME BETTER ATT HIS TIME , BOTH MD AWARE AND NOTIFIED OF THE ADMISSION, BELONGINGS CONTRABAND WERE DONE , PT. SIGNED ALL DOCUMENTS ADMISSION CONSENTS , PT. RIGHTS DISCUSS BY PATIENT PARTNER , PROVIDE THE PT. WITH HANDBOOK, AND MEDICATIONS GUIDE, ENVIRONMENTAL SAFETY CHECK DONE, ENCOURAGED PT. VERBALIZED ANY FEELING CONCERN TO STAFF, ORIENT TO UNIT POLICY, NO ACUTE DISTRESS NOTED,VITAL SIGNS WNL ,DENIES ANY PAIN AT THIS TIME,WILL CONTINUE TO MONITOR FOR Q15 SAFETY AND BEHAVIOR.
[2021-10-09] MEDS: TEMAZEPAM 7.5 MG CAPSULE PO PRN (22:31)
--- NOTE | 2021-10-09 22:32 | NUR ---
RN NOTES: INSOMNIA PT. C/O UNABLE TO SLEEP ,PRN RESTORIL 7.5 MG PO GIVEN PER PT. REQUEST, WILL CONTINUE TO MONITOR.
[2021-10-09 22:43] VITALS: BP 128/80
[2021-10-10 06:22] LABS: BASOPHILS % (AUTO) 0.2 % (0.0-2.0); EOSINOPHILS % (AUTO) 5.2 % (0.0-6.0); HEMATOCRIT 40 % (39-51); HEMOGLOBIN 13.6 g/dL (13.5-17.5); LYMPHOCYTES % (AUTO) 16.5 % (20.0-44.0); MEAN CORPUSCULAR HGB CONC 34 g/dl (31.0-36.0); MEAN CORPUSCULAR VOLUME 91 fL (80-96); MONOCYTES # (AUTO) 0.5 K/uL (0.1-1.30); MONOCYTES % (AUTO) 9.4 % (2.0-12.0); NEUTROPHILS % (AUTO) 68.7 % (43.0-81.0); PLATELET COUNT (AUTO) 197 K/uL (150-450); RED BLOOD CELL COUNT(AUTO) 4.41 MIL/uL (4.5-6.0); WHITE BLOOD COUNT (AUTO) 5.8 K/uL (4.3-11.0)
[2021-10-10 07:47] LABS: ALBUMIN 3.6 g/dL (3.4-5.0); BILIRUBIN,TOTAL 0.4 mg/dL (0.2-1.0); CALCIUM, SERUM 9.6 mg/dL (8.5-10.1); CREATININE 1.3 mg/dL (0.6-1.3); POTASSIUM 4.4 mmol/L (3.5-5.1); TOTAL PROTEIN, SERUM 6.5 g/dL (6.4-8.2)
[2021-10-10 08:00] VITALS: BP 102/61
--- NOTE | 2021-10-10 10:42 | NUR ---
UR INSURANCE: Auth# [id number]. aquaculture worker Gaurav [phone]. Per Rosana Li pt authorized for 3 days. RIMA contacted Gaurav to verify and to request more days. RIMA left a voicemail.
--- NOTE | 2021-10-10 10:51 | NUR ---
SW Admit Source: Patient is a voluntary pt and was brought to the hospital because he was feeling anxious and wanted to adjust his medications. Pt will return back home [address], [place] [address]; ([phone]) and wants to go back home upon dc. Patient does not have any family involved in his care at this time.
--- NOTE | 2021-10-10 10:51 | NUR ---
RIMA Initial Discharge Plan: Patient [address] [place] [address] [facility], [place] [address]; ([phone]) and wants to go back home upon dc. Patient does not have any family involved in his care at this time. RIMA will work with the MD and treatment team to help coordinate appropriate discharge.
[2021-10-10] MEDS: LITHIUM CARBONATE 150 MG CAPSULE PO SCH (13:16)
[2021-10-10] MEDS: risperiDONE 1 MG TABLET PO SCH ×2 (13:16→21:08)
--- NOTE | 2021-10-10 13:35 | NUR ---
UR INSURANCE: [facility]# [id number]. derrick worker well service Gaurav [phone]. RIMA received a call from Renay patient case coordinator ([phone]) (F:[phone]) and stated that she is covering for Gaurav. RIMA faxed patient's clinicals.
--- NOTE | 2021-10-10 14:08 | NUR ---
Coordination of Care: Patient will follow up with primary doctor (Primary Doctor) Dr. Raghavendra Castaneda located at [address], [place] [address]; ([phone]) on October 24 at 3PM. Patient will follow up with (Psychiatrist) Dr. Emily Zabala located at [address], [address], [place] [address]; ([phone]) and left a voicemail.
--- NOTE | 2021-10-10 15:21 | NUR ---
INSURANCE: Auth# [id number]. open hearth worker Gaurav [phone]. RIMA received a call from Renay case managers ([phone]) (F:[phone]) who stated pt is authorized and requires daily clinicals. She stated pt is authorized until 10/10/2021 and will need to fax on 10/11/2021. She stated Gaurav will be back to work on 10/11 and he will take the case.
[2021-10-10 16:00] VITALS: BP 102/62
[2021-10-10] MEDS: LITHIUM CARBONATE (300 MG CAP) 300 MG CAPSULE PO SCH (17:56)
[2021-10-10 20:00] VITALS: BP 103/60
--- NOTE | 2021-10-10 20:00 | NUR ---
RN NOTES : NEXT OF KIN PT. PROVIDE INFORMATION NEXT OF KIN ,FLORY RANGEL ( SISTER ) CALLED AT [phone] , AND LEFT MESSAGE , PER PT. REQUEST, PER PT. STATUS TELL MY SISTER I AM IN THE [facility] , Addendum: 10/11/21 at 0658 by IKE BAH RN PT. GIVE THIS PHONE NUMBER FOR HER SISTER FLORY RANGEL [phone] , BUT THIS PHONE IS WRONG NUMBER., UNABLE TO SPOKE WITH FLORY.
[2021-10-10] MEDS: TEMAZEPAM 7.5 MG CAPSULE PO PRN (21:09)
[2021-10-10] MEDS ORDERED: MIRTAZAPINE 15 MG TABLET PO SCH (22:00)
[2021-10-11] MEDS: LITHIUM CARBONATE 150 MG CAPSULE PO SCH ×2 (07:55→13:20)
[2021-10-11 08:00] VITALS: BP 143/83
[2021-10-11] MEDS: ATORVASTATIN 10 MG TABLET PO SCH (08:29)
[2021-10-11] MEDS: risperiDONE 1 MG TABLET PO SCH ×2 (08:30→20:35)
--- NOTE | 2021-10-11 08:45 | NUR ---
Coordination of Care: Patient will follow up with primary doctor (Primary Doctor) Dr. Raghavendra Castaneda located at [address], [place] [address]; ([phone]) on October 24 at 3PM. Patient will follow up with (Psychiatrist) Dr. Harkins located at [address] [address]; ([phone]) on October 14 at 11:45AM.
--- NOTE | 2021-10-11 08:45 | NUR ---
UR INSURANCE: Auth# [id number]. photographic process worker Gaurav [phone]. RIMA faxed patient's clinicals.
[2021-10-11] MEDS ORDERED: buPROPion SR 150 MG TABLET.ER PO SCH (09:00)
--- NOTE | 2021-10-11 10:42 | NUR ---
UR INSURANCE: Auth# [id number]. call worker person Gaurav [phone]. RIMA received a call from Renay assistant case manager ([phone]) ([phone]) who stated pt is authorized and requires daily clinicals. Authorized for 10/11/2021.
[2021-10-11] MEDS: LORAZEPAM 0.5 MG TABLET PO PRN (13:35)
--- NOTE | 2021-10-11 13:35 | NUR ---
RN-CO: ATIVAN 0.5 MG PO FOR AGITATION AND ANXIETY.
[2021-10-11 16:00] VITALS: BP 105/60
[2021-10-11] MEDS: LITHIUM CARBONATE (300 MG CAP) 300 MG CAPSULE PO SCH (16:05)
--- NOTE | 2021-10-11 19:30 | NUR ---
RN NOTES, PATIENT IN HIS ROOM IN BED AWAKE, ALERT AND ORIENTED X3, AT ROOM AIR, NO SOB/ACUTE DISTRESS NOTED, NO C/O PAIN OR DISCOMFORT, DENIES SI/HI AT THIS TIME, SAFETY PRECAUTIONS MAINTAINED AT ALL TIME, WILL CONTINUE TO MONITOR Q15MIN ROUNDS FOR SAFETY AND BEHAVIOR, NO DISRUPTIVE BEHAVIOR NOTED AT TIS TIME.
[2021-10-11 20:00] VITALS: BP 101/57
[2021-10-11] MEDS: TEMAZEPAM 7.5 MG CAPSULE PO PRN (20:35)
--- NOTE | 2021-10-11 20:40 | NUR ---
PATIENT REQUESTING SLEEPING PILL AT THIS TIME, RESTORIL ADMINISTERED ORDERED, WILL CONTINUE TO MONITOR CLOSELY.
[2021-10-12 08:00] VITALS: BP 104/58
[2021-10-12] MEDS ORDERED: LITHIUM CARBONATE 150 MG CAPSULE PO SCH (08:00)
--- NOTE | 2021-10-12 08:43 | NUR ---
SW Discharge Note: Patient will be discharged back home [place] [address] [address], [place] [address]; ([phone]). Please arrange taxi at 1PM. Patient does not have any supportive contact at this time. Patient is alert and oriented x3. Patient is happy to be going back home. Patient denies suicidal or homicidal ideation. Patient denies visual/auditory hallucinations. Patient will follow up with primary doctor (Primary Doctor) Dr. Raghavendra Castaneda located at [address], [place] [address]; ([phone]) on October 24 at 3PM. Patient will follow up with (Psychiatrist) Dr. Harkins located at [address] [address]; ([phone]) on October 14 at 11:45AM. Patient presents with euthymic mood and congruent affect.
--- NOTE | 2021-10-12 08:51 | NUR ---
UR INSURANCE: [facility]# [id number]. RIMA contacted Renay director case ([phone]) (F:[phone]) and stated pt will be discharged 10/12.
[2021-10-12] MEDS: risperiDONE 1 MG TABLET PO SCH (09:09)
[2021-10-12] MEDS: ATORVASTATIN 10 MG TABLET PO SCH (09:10)
--- NOTE | 2021-10-12 13:16 | NUR ---
Patient discharged HOME in stable condition.Compliant with medications ,cooperative with treatment plans Patient denies SI/HI/AVH .Behavior improved ,psychiatric tx plans met ,medical tx plans differed for for continual monitoring .Educated pt about after care plan (Exit -care)and copy provided .Returned personal belongings to patient med list and prescription given and explained to patient able to verbalize understanding .Vs stable ,no c/o pain .Patient seen by and with discharge orders and prescriptions .Patient discharge at `13:16 with Taxi
== END 2021-10-12 14:11 | disposition home or self-care (01) | DRG 885 ==
LOC: ER 12:30 → GPS 10-08 12:30
PROVIDERS: ADMIT Psychiatry & Neurology Psychosomatic Medicine; ATTEND Internal Medicine
DX: F25.0 Schizoaffective disorder, bipolar type (principal); F60.9 Personality disorder, unspecified; I10 Essential (primary) hypertension; Z79.899 Other long term (current) drug therapy; E78.5 Hyperlipidemia, unspecified; Z86.73 Personal history of transient ischemic attack (TIA), and cerebral infarction without residual deficits; Z87.891 Personal history of nicotine dependence; Z20.822 Contact with and (suspected) exposure to COVID-19
CPT/HCPCS: 36415; 73060-TC; 80048-TC; 80053-TC; 80061-TC; 80076-TC; 81001; 82962-TC; 85025-TC; 87081-TC; C9803; G0480

== ENCOUNTER 2022-01-28 16:46 | Emergency (ER) | payer OTHER ==
[~2022-01-28] VITALS: Ht 172.7 cm; Wt 74.8 kg
[~2022-01-28 16:46] MED LIST changes: +ATOR10TA PO; +BUPR150T10 PO; -LITH300C2 PO; -PARO20TA7 PO; -SIMV-49 PO; -TEMA15CA PO
--- NOTE | 2022-01-28 17:00 | NUR ---
URINE COLLECTED AND SENT TO LAB
[2022-01-28] MEDS ORDERED: LORAZEPAM 1 MG TABLET ONE (17:17)
--- NOTE | 2022-01-28 17:17 | NUR ---
COVID SWAB DONE AND SENT TO LAB
--- NOTE | 2022-01-28 17:24 | NUR ---
urine collected and sent to the lab
[2022-01-28] MEDS ORDERED: LORAZEPAM 1 MG TABLET PO ONE (17:30)
[2022-01-28 17:46] LABS: BILIRUBIN,URINE NEGATIVE (NEGATIVE); COLOR,URINE YELLOW (YELLOW); LEUKOCYTE ESTERASE ,URINE NEGATIVE (NEGATIVE); NITRITE, URINE NEGATIVE (NEGATIVE); PH,URINE 6.5 (5.0-8.0); PROTEIN,URINE NEGATIVE (NEGATIVE); UGLUCOSE NEGATIVE (NEGATIVE); UROBILINOGEN,URINE 0.2 EU/dL (0.2)
[2022-01-28 18:26] LABS: BASOPHILS % (AUTO) 0.3 % (0.0-2.0); EOSINOPHILS % (AUTO) 2.6 % (0.0-6.0); HEMATOCRIT 40 % (39-51); HEMOGLOBIN 13.7 g/dL (13.5-17.5); LYMPHOCYTES # (AUTO) 0.9 K/uL (0.8-4.8); LYMPHOCYTES % (AUTO) 10.9 % (20.0-44.0); MEAN CORPUSCULAR HGB CONC 34 g/dl (31.0-36.0); MEAN CORPUSCULAR VOLUME 91 fL (80-96); MONOCYTES # (AUTO) 0.5 K/uL (0.1-1.30); MONOCYTES % (AUTO) 6.3 % (2.0-12.0); NEUTROPHILS # (AUTO) 6.8 K/uL (1.8-8.9); NEUTROPHILS % (AUTO) 79.9 % (43.0-81.0); PLATELET COUNT (AUTO) 220 K/uL (150-450); WHITE BLOOD COUNT (AUTO) 8.6 K/uL (4.3-11.0)
[2022-01-28 18:36] LABS: CALCIUM, SERUM 9.9 mg/dL (8.5-10.1); CARBON DIOXIDE 27 mmol/L (21-32); CHLORIDE 105 mmol/L (98-107); CREATININE 1.4 mg/dL (0.6-1.3); GLUCOSE 149 mg/dL (74-106); POTASSIUM 3.8 mmol/L (3.5-5.1); SODIUM SERUM 138 mmol/L (136-145); UREA NITROGEN, BLOOD 16 mg/dL (7-18)
[2022-01-28 18:43] LABS: ALANINE AMINOTRANSFERASE 26 U/L (12-78); ALBUMIN 4.2 g/dL (3.4-5.0); ALKALINE PHOSPHATASE 76 U/L (46-116); ASPARTATE AMINOTRANSFERASE 21 U/L (15-37); BILIRUBIN,DIRECT 0.1 mg/dL (0.0-0.2); BILIRUBIN,TOTAL 0.5 mg/dL (0.2-1.0); TOTAL PROTEIN, SERUM 7.2 g/dL (6.4-8.2)
[2022-01-28 18:50] LABS: ACETAMINOPHEN < 0 ug/ml (10-30); ALCOHOL, BLOOD < 3 mg/dL (0-0)
--- NOTE | 2022-01-28 20:55 | NUR ---
PT IS RESTING COMFORTABLY IN BED. CONNECTED TO MONITOR. WILL CONTINUE TO MONITOR
--- NOTE | 2022-01-29 01:23 | NUR ---
EVETTE BERNAL ON THE PHONE TALKING WITH PATIENT.
--- NOTE | 2022-01-29 01:45 | NUR ---
PER EVETTE, PT DOES NOT MEET IN PATIENT CRITERIA.
--- NOTE | 2022-01-29 01:51 | NUR ---
PER EVETTE, PT HAS NO CRITERIA FOR INPATIENT ADMISSION AND CLEAR TO BE DISCHARGED. MADE AWARE
[2022-01-29] MEDS ORDERED: LORAZEPAM 1 MG TABLET ONE (04:58)
[2022-01-29] MEDS ORDERED: LORAZEPAM 1 MG TABLET PO ONE (05:00)
--- NOTE | 2022-01-29 08:38 | NUR ---
Patient discharged to home in stable condition. Written and verbal after care instructions given. Patient verbalizes understanding of instruction. Pt ambulatory with a steady gait
--- NOTE | 2022-01-29 08:39 | NUR ---
PT PROVIDED W/ BREAKFAST
[2022-01-29 09:03] VITALS: BP 135/62
== END 2022-01-29 09:04 | disposition home or self-care (01) ==
LOC: ER 16:50
DX: F32.A Depression, unspecified (principal); F41.9 Anxiety disorder, unspecified; R94.31 Abnormal electrocardiogram [ECG] [EKG]; Z79.899 Other long term (current) drug therapy; I10 Essential (primary) hypertension; E78.5 Hyperlipidemia, unspecified; Z20.822 Contact with and (suspected) exposure to COVID-19; I45.2 Bifascicular block
CPT/HCPCS: 36415; 71045; 80048; 80076; 80143; 80307; 80320; 81003; 84484 ×2; 85025; 87426; 93005; 99285; C9803; G0480

== ENCOUNTER 2022-02-16 13:11 | Emergency (ER) | payer OTHER ==
[~2022-02-16] VITALS: Ht 172.7 cm; Wt 74.8 kg
--- NOTE | 2022-02-16 14:11 | NUR ---
URINE COLLECTED AND SENT TO THE LAB
[2022-02-16] MEDS ORDERED: DIPHENHYDRAMINE HCL 12.5 MG/5 ML UDC PO ONE (15:00)
[2022-02-16] MEDS ORDERED: diphenhydrAMINE HCL ELIX 25 MG/10 ML UDC ONE (15:02)
[2022-02-16 15:05] VITALS: BP 132/88
[2022-02-16] MEDS ORDERED: LORAZEPAM INJ 2 MG/ML VIAL IM ONE (16:00)
[2022-02-16] MEDS ORDERED: LORAZEPAM INJ 2 MG/ML VIAL ONE (16:02)
--- NOTE | 2022-02-16 16:06 | NUR ---
Patient discharged to home in stable condition. Written and verbal after care instructions given. Patient verbalizes understanding of instruction. Instructed not to drive.
== END 2022-02-16 16:07 | disposition home or self-care (01) ==
LOC: ER 13:22
DX: G24.01 Drug induced subacute dyskinesia (principal); T43.595A Adverse effect of other antipsychotics and neuroleptics, initial encounter; I10 Essential (primary) hypertension; E78.5 Hyperlipidemia, unspecified; Z90.89 Acquired absence of other organs; Z60.2 Problems related to living alone; Y92.89 Other specified places as the place of occurrence of the external cause
CPT/HCPCS: 99283; 96372; J2060; Q0163

== ENCOUNTER 2022-05-01 12:24 | Emergency (ER) | payer OTHER ==
[~2022-05-01] VITALS: Ht 172.7 cm; Wt 65.8 kg
--- NOTE | 2022-05-01 12:39 | NUR ---
TO ER BED 11 AWAITING MD VALENTINO,NAD
--- NOTE | 2022-05-01 12:49 | NUR ---
DR MCGOVERN AT BEDSIDE FOR EVAL
[2022-05-01] MEDS ORDERED: LORAZEPAM 1 MG TABLET ONE (12:53)
--- NOTE | 2022-05-01 12:57 | NUR ---
ATIVAN PO TAKEN WELL
[2022-05-01] MEDS ORDERED: LORAZEPAM 1 MG TABLET PO ONE (13:00)
[2022-05-01] MEDS ORDERED: CLON1TAB PO (13:20)
[2022-05-01 13:31] VITALS: BP 122/70
--- NOTE | 2022-05-01 13:31 | NUR ---
Patient discharged to home in stable condition. Written and verbal after care instructions given. Patient verbalizes understanding of instruction.
== END 2022-05-01 13:31 | disposition home or self-care (01) ==
LOC: ER 12:28
DX: F41.9 Anxiety disorder, unspecified (principal); I10 Essential (primary) hypertension; E78.5 Hyperlipidemia, unspecified; Z90.89 Acquired absence of other organs; Z60.2 Problems related to living alone; Z79.899 Other long term (current) drug therapy